=== PATIENT | male | born 1965 | race Caucasian/White ===

== ENCOUNTER 2017-10-10 23:39 | Emergency (ER) | payer OTHER ==
[~2017-10-10] VITALS: Ht 170.2 cm; Wt 116.1 kg
[~2017-10-10 23:39] MED LIST: ALBUTEROL2.5 MG/31 INH; CEFPODOXIME PR200 M1 PO; DUONEB 2.5-0.5 M3 ML INH; LEVAQUIN 500 M500 M4 PO; PERCOCET PO; PREDNISONE 10 M10 MG PO; PROTONIX40 M1 PO; VALIUM5 MG PO; VENTOLIN HFA 1818 GM INH
[2017-10-11 01:29] LABS: ABSOLUTE BASOPHILS 0.1 thou/uL (0.0-0.2); ABSOLUTE EOSINOPHILS 0.3 thou/uL (0.0-0.7); ABSOLUTE MONOCYTES 0.6 thou/uL (0.0-1.2); ABSOLUTE NEUTROPHILS 4.2 thou/uL (1.6-8.1); BASOPHILS 0.6 %; EOSINOPHILS 3.1 %; HEMATOCRIT 41.4 % (42.0-52.0); HEMOGLOBIN 14.3 gm/dL (14.0-18.0); LYMPHOCYTES 43.7 %; MCH 30.3 pg (26.0-34.0); MCHC 34.6 g/dL (28.0-37.0); MCV 87.6 fL (80.0-100.0); MONOCYTES 6.6 %; MPV 7.3 fl. (7.2-11.1); NUCLEATED RBCS 0 /100WBC; PLATELET COUNT* 353 thou/uL (150-400); RBC 4.72 mil/uL (4.50-6.00); RDW-CV 15.7 % (10.5-14.5); WBC 9.2 thou/uL (4.0-11.0)
[2017-10-11 01:34] LABS: ANION GAP 9 mmol/L (7-16); BUN 22 mg/dL (7-18); CALCIUM 9.2 mg/dL (8.5-10.1); CHLORIDE 102 mmol/L (98-107); CO2 29 mmol/L (21-32); CREATININE 1.1 mg/dL (0.6-1.3); GLUCOSE 134 mg/dL (70-99); POTASSIUM 3.9 mmol/L (3.5-5.1); SODIUM 140 mmol/L (136-145)
[2017-10-11 01:41] LABS: ALBUMIN 3.8 g/dL (3.4-5.0); ALKALINE PHOSPHATASE 85 U/L (46-116); LIPASE 101 U/L (73-393); SGOT 18 U/L (15-37); SGPT 37 U/L (30-65); TOTAL BILIRUBIN 0.2 mg/dL (<0.1-1.0); TOTAL PROTEIN 7.8 g/dL (6.4-8.2)
[2017-10-11 01:58] LABS: TROPONIN-I LEVEL <0.06 ng/mL (<0.06)
[2017-10-11 02:25] VITALS: BP 154/90
--- NOTE | 2017-10-11 13:12 | EKG ---
[place] [address] ELECTROCARDIOGRAM REPORT Name: SANDRA ANGULO [facility] [id number] Admission: 10/10/17 Attend Phys: Discharge: 10/11/17 Date of : 65 Report #: [id number] THIS REPORT FOR: //name// [facility] ED Test Date: 2017-10-10 Test Time: 23:50:31 Pat Name: SANDRA LICLDON Department: Room: Gender: M Cray Fishing Hand: GERARDO : 1965 Requested By: Giselle Preciado Order Number: [id number] MD: Richard Sevilla Measurements Intervals [place] Rate: 91 P: 20 [place]: 168 QRS: 21 QRSD: 83 T: 26 QT: 362 QTc: 446 Interpretive Statements Sinus rhythm Low voltage, precordial leads Consider RVH or posterior infarct Baseline wander in lead(s) I,II,aVR Compared to ECG 01/09/2017 04:33:28 Low QRS voltage now present Myocardial infarct finding now present Electronically Signed On 10-11-2017 13:12:27 FURNACE UTILITY OPERATOR by Richard Sevilla [email or web address] <ELECTRONICALLY SIGNED> By: Richard Sevilla MD, FAC 10/11/17 1312 2350 2350 Richard Sevilla MD, FAC /EPI
== END 2017-10-11 02:26 | disposition home or self-care (01) ==
LOC: M.ERS 23:39
PROVIDERS: Emergency Medicine
DX: R06.00 Dyspnea, unspecified (principal); F17.210 Nicotine dependence, cigarettes, uncomplicated; F10.99 Alcohol use, unspecified with unspecified alcohol-induced disorder; J45.909 Unspecified asthma, uncomplicated; Z88.5 Allergy status to narcotic agent; Z88.0 Allergy status to penicillin; Z88.8 Allergy status to other drugs, medicaments and biological substances; Z85.47 Personal history of malignant neoplasm of testis

== ENCOUNTER 2017-12-15 16:35 | Emergency (ER) | payer OTHER ==
[~2017-12-15] VITALS: Ht 170.2 cm; Wt 116.1 kg
[2017-12-15] MEDS ORDERED: KEFLEX500 M2 PO (17:10)
[2017-12-15 17:28] VITALS: BP 133/79
== END 2017-12-15 17:29 | disposition home or self-care (01) ==
LOC: M.ERS 16:35
DX: M79.671 Pain in right foot (principal); L03.031 Cellulitis of right toe; F17.210 Nicotine dependence, cigarettes, uncomplicated; J45.909 Unspecified asthma, uncomplicated; Z88.0 Allergy status to penicillin; Z88.5 Allergy status to narcotic agent; Z88.8 Allergy status to other drugs, medicaments and biological substances

== ENCOUNTER 2019-11-27 21:46 | Emergency (ER) | payer OTHER ==
[~2019-11-27] VITALS: Ht 172.7 cm; Wt 118.4 kg
[~2019-11-27 21:46] MED LIST changes: +KEFLEX500 M2 PO
[2019-11-27] MEDS ORDERED: ELIQUIS5 MG PO (22:06)
[2019-11-27] MEDS ORDERED: INDERAL40 MG PO (22:06)
[2019-11-27] MEDS ORDERED: [UNRECOGNIZED DRUG - OTHER] (22:07)
[2019-11-27] MEDS ORDERED: HUMATROPE (22:07)
[2019-11-27] MEDS ORDERED: ZOMIG2.5 M1 (22:08)
[2019-11-27] MEDS ORDERED: [UNRECOGNIZED DRUG - OTHER] (22:08)
[2019-11-27 22:35] LABS: PROTIME 10.7 Seconds (9.20-11.50)
[2019-11-27 23:01] LABS: ABSOLUTE BASOPHILS 0.1 thou/uL (0.0-0.2); ABSOLUTE EOSINOPHILS 0.2 thou/uL (0.0-0.7); ABSOLUTE LYMPHOCYTES 2.8 thou/uL (0.8-5.3); ABSOLUTE MONOCYTES 0.7 thou/uL (0.0-1.2); ABSOLUTE NEUTROPHILS 6.6 thou/uL (1.6-8.1); BASOPHILS 0.9 %; EOSINOPHILS 1.9 %; HEMATOCRIT 38.5 % (42.0-52.0); HEMOGLOBIN 12.9 gm/dL (14.0-18.0); LYMPHOCYTES 27.3 %; MCH 30.5 pg (26.0-34.0); MCHC 33.5 g/dL (28.0-37.0); MONOCYTES 6.8 %; MPV 7.5 fl. (7.2-11.1); NUCLEATED RBCS 0 /100WBC; PLATELET COUNT* 332 thou/uL (150-400); POLYS 63.1 %; RBC 4.24 mil/uL (4.50-6.00); RDW-CV 15.2 % (10.5-14.5); WBC 10.4 thou/uL (4.0-11.0)
[2019-11-27 23:15] LABS: CALCIUM 9.2 mg/dL (8.5-10.1); CREATININE 1.1 mg/dL (0.6-1.3); POTASSIUM 4.1 mmol/L (3.5-5.1)
[2019-11-27 23:25] LABS: ALBUMIN 3.4 g/dL (3.4-5.0); TOTAL BILIRUBIN 0.3 mg/dL (<0.1-1.0); TOTAL PROTEIN 7.3 g/dL (6.4-8.2)
[2019-11-28] MEDS ORDERED: HYDROXYZINE HCL25 M2 PO (01:42)
[2019-11-28] MEDS ORDERED: TRIAMCINOLONE A80 G2 TOP (01:42)
[2019-11-28 01:50] VITALS: BP 110/66
--- NOTE | 2019-11-28 08:50 | EKG ---
[place] [address] ELECTROCARDIOGRAM REPORT Name: SANDRA ANGULO Room: [facility]#: [id number] Admission: 11/27/19 Attend Phys: Discharge: 11/28/19 Date of : 65 Date of Service: 11/27/192157 Report #: [id number] THIS REPORT FOR: //name// [facility] ED Test Date: 2019-11-27 Test Time: 21:58:58 Pat Name: SANDRA ANGULO Department: Room: Gender: Turning Machine Operator: [place] : 1965 Requested By: Giselle Preciado Order Number: [id number] MD: Alli Hernandez Measurements Intervals [place] Rate: 71 P: 31 [place]: 178 QRS: 14 QRSD: 124 T: 30 QT: 407 QTc: 443 Interpretive Statements Sinus rhythm Nonspecific intraventricular conduction delay Baseline wander in lead(s) V3,V4,V5,V6 Compared to ECG 10/10/2017 23:50:31 Intraventricular conduction delay now present Electronically Signed On 11-28-2019 8:49:48 FIXER BOARDING ROOM by Alli Hernandez [email or web address] <ELECTRONICALLY SIGNED> By: Alli Hernandez MD, FAC 11/28/19 0849 2158 Alli Hernandez MD, [facility] /EPI
== END 2019-11-28 01:50 | disposition home or self-care (01) ==
LOC: M.ERS 21:46
PROVIDERS: Emergency Medicine
DX: I26.99 Other pulmonary embolism without acute cor pulmonale (principal); J45.909 Unspecified asthma, uncomplicated; G47.30 Sleep apnea, unspecified; F17.210 Nicotine dependence, cigarettes, uncomplicated; Z88.0 Allergy status to penicillin; Z88.5 Allergy status to narcotic agent

== ENCOUNTER 2020-03-02 11:46 | Emergency (ER) | payer OTHER ==
[~2020-03-02] VITALS: Ht 172.7 cm; Wt 127.0 kg
[~2020-03-02 11:46] MED LIST changes: +ELIQUIS5 MG PO; +HUMATROPE; +HYDROXYZINE HCL25 M2 PO; +INDERAL40 MG PO; +TRIAMCINOLONE A80 G2 TOP; +ZOMIG2.5 M1; +[UNRECOGNIZED DRUG - OTHER]; +[UNRECOGNIZED DRUG - OTHER]
[2020-03-02] MEDS ORDERED: ZYRTEC10 M5 PO (12:00)
[2020-03-02] MEDS ORDERED: OMEPRAZOLE10 MG PO (12:01)
[2020-03-02] MEDS ORDERED: CHOLESTEROL MED (12:01)
[2020-03-02 12:25] LABS: ABSOLUTE BASOPHILS 0.1 thou/uL (0.0-0.2); ABSOLUTE EOSINOPHILS 0.2 thou/uL (0.0-0.7); ABSOLUTE LYMPHOCYTES 2.2 thou/uL (0.8-5.3); ABSOLUTE MONOCYTES 0.6 thou/uL (0.0-1.2); ABSOLUTE NEUTROPHILS 4.2 thou/uL (1.6-8.1); BASOPHILS 1.4 %; HEMOGLOBIN 12.8 gm/dL (14.0-18.0); LYMPHOCYTES 30.5 %; MCH 30.4 pg (26.0-34.0); MCHC 34.7 g/dL (28.0-37.0); MCV 87.4 fL (80.0-100.0); MONOCYTES 7.5 %; NUCLEATED RBCS 0 /100WBC; PLATELET COUNT* 444 thou/uL (150-400); POLYS 57.6 %; RBC 4.23 mil/uL (4.50-6.00); RDW-CV 14.2 % (10.5-14.5); WBC 7.4 thou/uL (4.0-11.0)
[2020-03-02 12:35] LABS: APTT 30.4 Seconds (25.0-31.3); PROTIME 10.7 Seconds (9.20-11.50)
[2020-03-02 13:05] LABS: CREATININE 0.9 mg/dL (0.6-1.3); POTASSIUM 3.9 mmol/L (3.5-5.1)
[2020-03-02 13:16] LABS: ALBUMIN 3.2 g/dL (3.4-5.0); TOTAL BILIRUBIN 0.4 mg/dL (<0.1-1.0); TOTAL PROTEIN 7.8 g/dL (6.4-8.2)
[2020-03-02 14:28] LABS: URINE BILIRUBIN NEGATIVE (Negative); URINE BLOOD NEGATIVE (Negative); URINE CLARITY CLEAR; URINE COLOR YELLOW; URINE GLUCOSE-RANDOM NEGATIVE (Negative); URINE KETONES NEGATIVE (Negative); URINE LEUKOCYTES-REFLEX NEGATIVE (Negative); URINE NITRITE-REFLEX NEGATIVE (Negative); URINE PROTEIN NEGATIVE (Negative); URINE UROBILINOGEN 0.2 E.U./dl (0.2-1.0)
[2020-03-02 15:00] VITALS: BP 119/75
--- NOTE | 2020-03-02 16:26 | EKG ---
[place] [address] ELECTROCARDIOGRAM REPORT Name: SNADRA ANGULO Room: [facility]#: [id number] Admission: 03/02/20 Attend Phys: Discharge: 03/02/20 Date of : 65 Date of Service: 03/02/20 1150 Report #: [id number] THIS REPORT FOR: //name// [facility] ED Test Date: 2020-03-02 Test Time: 11:50:27 Pat Name: SANDRA ANGULO Department: Room: Gender: Clinical Data Coordinator: : 1965 Requested By: Angy Meier Order Number: [id number] MD: Jatin Brian Measurements Intervals [place] Rate: 81 P: 32 [place]: 168 QRS: 23 QRSD: 70 T: 20 QT: 474 QTc: 551 Interpretive Statements Sinus rhythm Low voltage, precordial leads Borderline T abnormalities, anterior leads Prolonged QT interval Baseline wander in lead(s) III,V4,V5 Compared to ECG 11/27/2019 21:58:58 Low QRS voltage now present T-wave abnormality now present Prolonged QT interval now present Intraventricular conduction delay no longer present Electronically Signed On 03-02-2020 16:24:08 CDT by Jatin Brian [email or web address] <ELECTRONICALLY SIGNED> By: Jatin Brian MD, [facility] 03/02/20 1624 1150 1150 Jatin Brian MD, [facility] /EPI
== END 2020-03-02 15:00 | disposition home or self-care (01) ==
LOC: M.ERS 11:46
PROVIDERS: Personal Emergency Response Attendant
DX: R03.1 Nonspecific low blood-pressure reading (principal); J45.909 Unspecified asthma, uncomplicated; G47.30 Sleep apnea, unspecified; Z88.0 Allergy status to penicillin; Z88.5 Allergy status to narcotic agent

== ENCOUNTER 2020-09-02 09:03 | Emergency (ER) | payer OTHER ==
[~2020-09-02] VITALS: Ht 172.7 cm; Wt 129.3 kg
[~2020-09-02 09:03] MED LIST changes: +CHOLESTEROL MED; +OMEPRAZOLE10 MG PO; +ZYRTEC10 M5 PO
[2020-09-02 09:23] LABS: ABSOLUTE BASOPHILS 0.1 thou/uL (0.0-0.2); ABSOLUTE EOSINOPHILS 0.3 thou/uL (0.0-0.7); ABSOLUTE LYMPHOCYTES 3.7 thou/uL (0.8-5.3); ABSOLUTE MONOCYTES 0.7 thou/uL (0.0-1.2); ABSOLUTE NEUTROPHILS 3.9 thou/uL (1.6-8.1); EOSINOPHILS 3.5 %; HEMATOCRIT 37.2 % (42.0-52.0); HEMOGLOBIN 12.5 gm/dL (14.0-18.0); MCHC 33.5 g/dL (28.0-37.0); MCV 86.7 fL (80.0-100.0); MONOCYTES 8.6 %; MPV 6.8 fl. (7.2-11.1); NUCLEATED RBCS 0 /100WBC; PLATELET COUNT* 344 thou/uL (150-400); POLYS 44.9 %; RDW-CV 14.8 % (10.5-14.5); WBC 8.7 thou/uL (4.0-11.0)
[2020-09-02 09:33] LABS: CALCIUM 8.2 mg/dL (8.5-10.1); CREATININE 0.9 mg/dL (0.6-1.3); POTASSIUM 3.8 mmol/L (3.5-5.1)
[2020-09-02 09:41] LABS: PROTIME 10.3 Seconds (9.20-11.50)
[2020-09-02 09:46] LABS: ALBUMIN 3.3 g/dL (3.4-5.0); CK-MB MASS 0.8 ng/mL (<0.5-3.6); MAGNESIUM 1.9 mg/dL (1.8-2.4); TOTAL BILIRUBIN 0.4 mg/dL (<0.1-1.0); TOTAL PROTEIN 7.5 g/dL (6.4-8.2)
[2020-09-02] MEDS ORDERED: PREDNISONE 20 M20 M1 PO (10:10)
[2020-09-02] MEDS ORDERED: ZOFRAN ODT4 MG SUBLING (10:10)
[2020-09-02] MEDS ORDERED: TESSALON PERLE100 MG PO (10:10)
[2020-09-02] MEDS ORDERED: ZPAK PO (10:10)
[2020-09-02 10:28] VITALS: BP 136/59
--- NOTE | 2020-09-03 08:58 | EKG ---
[place] [address] ELECTROCARDIOGRAM REPORT Name: SANDRA ANGULO Room: [facility]#: [id number] Admission: 09/02/20 Attend Phys: Discharge: 09/02/20 Date of : 65 Date of Service: 09/02/20 0910 Report #: [id number] THIS REPORT FOR: //name// [facility] ED Test Date: 2020-09-02 Test Time: 09:10:07 Pat Name: SANDRA ANGULO Department: Room: Gender: Casting Operator: : 1965 Requested By: Shlomo Granda Order Number: [id number] MD: Alli Hernandez Measurements Intervals [place] Rate: 96 P: 45 [place]: 179 QRS: 22 QRSD: 95 T: 72 QT: 351 QTc: 444 Interpretive Statements Sinus rhythm Low voltage, precordial leads Borderline T wave abnormalities Compared to ECG 03/02/2020 11:50:27 Prolonged QT interval no longer present T-wave abnormality still present Electronically Signed On 09-03-2020 8:58:05 FIRE PROTECTION DESIGNER by Alli Hernandez [email or web address] <ELECTRONICALLY SIGNED> By: Alli Hernandez MD, FACC 09/03/20 0858 Alli Hernandez MD, [facility] /EPI
== END 2020-09-02 10:28 | disposition home or self-care (01) ==
LOC: M.ERS 09:03
PROVIDERS: Family Medicine
DX: U07.1 COVID-19 (principal); J45.909 Unspecified asthma, uncomplicated; G47.30 Sleep apnea, unspecified; F17.210 Nicotine dependence, cigarettes, uncomplicated; Z88.0 Allergy status to penicillin; Z88.5 Allergy status to narcotic agent

== ENCOUNTER 2020-09-04 19:24 | Inpatient (IN) | payer OTHER ==
[~2020-09-04] VITALS: Ht 170.2 cm; Wt 123.0 kg
[~2020-09-04 19:24] MED LIST changes: +PREDNISONE 20 M20 M1 PO; +TESSALON PERLE100 MG PO; +ZOFRAN ODT4 MG SUBLING; +ZPAK PO
[2020-09-04 19:32] VITALS: BP 126/76
[2020-09-04 20:05] LABS: ABSOLUTE LYMPHOCYTES 0.8 thou/uL (0.8-5.3); ABSOLUTE MONOCYTES 0.6 thou/uL (0.0-1.2); ABSOLUTE NEUTROPHILS 7.3 thou/uL (1.6-8.1); BASOPHILS 0.5 %; EOSINOPHILS 0.4 %; HEMATOCRIT 34.3 % (42.0-52.0); HEMOGLOBIN 11.4 gm/dL (14.0-18.0); LYMPHOCYTES 9.4 %; MCH 29.8 pg (26.0-34.0); MCHC 33.4 g/dL (28.0-37.0); MCV 89.2 fL (80.0-100.0); MONOCYTES 6.9 %; MPV 7.2 fl. (7.2-11.1); NUCLEATED RBCS 0 /100WBC; PLATELET COUNT* 303 thou/uL (150-400); POLYS 82.8 %; RBC 3.85 mil/uL (4.50-6.00); RDW-CV 15.5 % (10.5-14.5); WBC 8.8 thou/uL (4.0-11.0)
[2020-09-04 20:17] LABS: CALCIUM 8.1 mg/dL (8.5-10.1); CREATININE 1.1 mg/dL (0.6-1.3); POTASSIUM 4.4 mmol/L (3.5-5.1)
[2020-09-04 20:18] LABS: PROTIME 10.4 Seconds (9.20-11.50)
[2020-09-04 20:28] LABS: ALBUMIN 3.1 g/dL (3.4-5.0); TOTAL BILIRUBIN 0.1 mg/dL (<0.1-1.0); TOTAL PROTEIN 7.2 g/dL (6.4-8.2)
[2020-09-04 20:41] LABS: INFLUENZA A ANTIGEN Negative (Negative); INFLUENZA B ANTIGEN Negative (Negative)
[2020-09-04 22:42] VITALS: BP 120/60
[2020-09-04 23:15] VITALS: BP 111/71
[2020-09-04] MEDS ORDERED: LIPITOR40 MG PO (23:27)
[2020-09-04] MEDS ORDERED: ZYRTEC10 MG PO (23:29)
[2020-09-05 04:20] VITALS: BP 104/65
--- NOTE | 2020-09-05 05:22 | NUR ---
RECIEVED PT FROM ED , UPON ARRIVAL TO ROOM PT AMBULATED TO BATHROOM, TOLERATED WELL SAT 94 % , PT REQUEST 02 EXT TUBING , LUNG SOUND DECREASED IN BASES, NO COUGH NOTED NO FVER . CARDIAC MONTIOR PLACED ON PT SHOWS NSR.PT RESTED WELL THROUGHOUT HOURLY ROUNDS, WITH HOME CPAP ON IN PLACE.
--- NOTE | 2020-09-05 06:16 | NUR ---
PT SLEPT WELL NO CHANGES NOTED , ASSESSMENT UNCHANGED.
--- NOTE | 2020-09-05 09:18 | EKG ---
[place] [address] ELECTROCARDIOGRAM REPORT Name: SANDRA ANGULO Room: [address]#: [id number] Admission: 09/04/20 Attend Phys: Angela Vázquez, Discharge: Date of : 65 Date of Service: 09/04/201936 Report #: [id number] THIS REPORT FOR: //name// [facility] ED Test Date: 2020-09-04 Test Time: 19:37:50 Pat Name: SANDRA ANGULO Department: Room: [facility] Gender: M Sexer: [place] : 1965 Requested By: Giselle Preciado Order Number: [id number] MD: Alli Hernandez Measurements Intervals [place] Rate: 109 P: 19 [place]: 156 QRS: 19 QRSD: 86 T: 2 QT: 313 QTc: 422 Interpretive Statements Sinus tachycardia Probable left atrial enlargement Baseline wander in lead(s) I,II,aVR Compared to ECG 09/02/2020 09:10:07 Sinus rhythm no longer present T-wave abnormality no longer present Electronically Signed On 09-05-2020 9:18:24 IRON WORKER FOREMAN by Alli Hernandez [email or web address] <ELECTRONICALLY SIGNED> By: Alli Hernandez MD, FACC 09/05/2018 36 36 Alli Hernandez MD, FACC /EPI
[2020-09-05 09:40] VITALS: BP 111/76
[2020-09-05 12:49] VITALS: BP 125/67
[2020-09-05 14:00] VITALS: BP 103/71
[2020-09-05 16:09] VITALS: BP 103/67; BP 119/68; BP 120/63; BP 125/72
--- NOTE | 2020-09-05 18:55 | NUR ---
RECEIVED REPORT. ASSUMED CARE OF PT AROUND 0730. AM ASSESSMENT AND VITALS COMPLETED CHARTED. MEDS PER EMAR. APPETITE GOOD. DENIED PAIN. TEMP THIS AFTERNOON OF 102.6 - TYLENOL GIVEN, AND TEMP DOWN TO 98.5. CONVALESANT PLASMA INFUSING NOW, NIGHT RN TO FINISH INFUSION. PT CURRENTLY RESTING IN BED. CALL LIGHT IS WITHIN REACH REACH. HOURLY ROUNDING PERFORMED. LOW FALL RISK PRECAUTIONS IN PLACE,.
[2020-09-05 20:01] VITALS: BP 125/72
[2020-09-06] VITALS (7 sets, daily range): BP systolic 111–136; BP diastolic 59–84
[2020-09-06 05:08] LABS: ABSOLUTE MONOCYTES 0.5 thou/uL (0.0-1.2); ABSOLUTE NEUTROPHILS 7.5 thou/uL (1.6-8.1); BASOPHILS 0.2 %; HEMATOCRIT 34.3 % (42.0-52.0); HEMOGLOBIN 11.6 gm/dL (14.0-18.0); LYMPHOCYTES 10.7 %; MCH 29.2 pg (26.0-34.0); MCHC 33.9 g/dL (28.0-37.0); MCV 86.1 fL (80.0-100.0); MONOCYTES 5.7 %; MPV 7.2 fl. (7.2-11.1); NUCLEATED RBCS 0 /100WBC; PLATELET COUNT* 287 thou/uL (150-400); POLYS 83.4 %; RBC 3.98 mil/uL (4.50-6.00); RDW-CV 15.3 % (10.5-14.5)
[2020-09-06 05:15] LABS: CALCIUM 8.1 mg/dL (8.5-10.1); CREATININE 0.9 mg/dL (0.6-1.3); POTASSIUM 4.3 mmol/L (3.5-5.1)
--- NOTE | 2020-09-06 05:59 | NUR ---
PT IS ABLE TO COMMUNICATE HIS NEEDS TO STAFF EFFECTIVELY. HE HAS DENIED THE NEED FOR PAIN MEDICATION UP TO THIS TIME. PT HAS RUN A LOW-GRADE FEVER INTERMITTENTLY OVERNIGHT. HE HAS BEEN WEARING HIS HOME CPAP FOR THE MAJORITY OF THE NIGHT WHILE SLEEPING.
--- NOTE | 2020-09-06 09:10 | NUR ---
Nutrition: Pt morbidly obese. Admit yesterday COVID+ w/ shortnesss of breath. Nsg noted pt with good appetite. Albumin 3.1. Steriods and other meds reviwed. Physician noted that pt continues with high grade fever this am. Pt is receiving a heart healthy diet. No new recommendations at this time. Assessed at low nutrition risk.
--- NOTE | 2020-09-06 18:24 | NUR ---
PT REMAINED ALERT AND ORIENTED. PT RESTING IN BED. PLASMA GIVEN PER ORDERS. FALL RISK PRECAUTIONS IN PLACE. HEART MONITORED. HOURLY ROUNDING COMPLETED. WILL CONTINUE TO MONITOR.
[2020-09-07 00:28] VITALS: BP 114/70
[2020-09-07 05:09] VITALS: BP 112/65
[2020-09-07 05:17] LABS: HEMATOCRIT 36.8 % (42.0-52.0); HEMOGLOBIN 12.2 gm/dL (14.0-18.0); MCH 28.8 pg (26.0-34.0); MCV 87.1 fL (80.0-100.0); MPV 7.4 fl. (7.2-11.1); NUCLEATED RBCS 0 /100WBC; PLATELET COUNT* 281 thou/uL (150-400); RBC 4.23 mil/uL (4.50-6.00); RDW-CV 15.2 % (10.5-14.5); WBC 9.4 thou/uL (4.0-11.0)
[2020-09-07 05:45] LABS: ALBUMIN 2.7 g/dL (3.4-5.0); CALCIUM 8.2 mg/dL (8.5-10.1); CREATININE 0.9 mg/dL (0.6-1.3); POTASSIUM 4.4 mmol/L (3.5-5.1); TOTAL BILIRUBIN 0.3 mg/dL (<0.1-1.0); TOTAL PROTEIN 7.6 g/dL (6.4-8.2)
[2020-09-07 07:00] LABS: ABSOLUTE LYMPHOCYTES 1.5 thou/uL (0.8-5.3); ABSOLUTE MONOCYTES 0.2 thou/uL (0.0-1.2); ABSOLUTE NEUTROPHILS 7.7 thou/uL (1.6-8.1); PLATELET ESTIMATE ADEQUATE
[2020-09-07 08:05] VITALS: BP 119/70
--- NOTE | 2020-09-07 08:47 | NUR ---
PT IS ABLE TO COMMUNICATE HIS NEEDS TO STAFF EFFECTIVELY. HE HAS DENIED THE NEED FOR PAIN MEDICATION UP TO 0700 THIS MORNING.
--- NOTE | 2020-09-07 11:15 | NUR ---
SPOKE WITH PT.ON PHONE DUE TO COVID 19 AND IN ENHANCED PRECAUTIONS. HE LIVES WITH HIS . IS INDEPENDENT. NO USE OF DME OR O2 . HE REQUESTED A NEW DPOA FORM WHEN OUT OF ISOLATION. HE WOULD LIKE TO CHANGE HIS AGENT. FORM PLACED IN FRONT OF CHART FOR PT.WHEN HE IS OUT OF ISOLATION. CM WILL FOLLOW.
[2020-09-07 11:46] VITALS: BP 113/62
--- NOTE | 2020-09-07 14:41 | CON ---
[address] [address] CONSULTATION Name: SANDRA ANGULO Room: [address] IN ..#: [id number] Admission: 09/05/20 Attend Phys: Angela Vázquez MD Discharge: Date of : 65 Report #: [id number] THIS REPORT FOR: //name// cc: SWATHI Davila family physician/PCP SWATHI - Lola family physician/PCP ~ DATE OF SERVICE: 09/06/2020 CONSULT REQUESTED BY: Isaias Cuadra M.D. INDICATION FOR CONSULTATION: Acute hypoxemic respiratory failure secondary to COVID-19. HISTORY OF PRESENT ILLNESS: A 55-year-old gentleman with past medical history includes a history of bronchial asthma as well as obstructive sleep apnea. He also had a deep venous thrombosis and pulmonary emboli for which he took anticoagulation for about 9 months until the June. The circumstances in which he had deep venous thrombosis and pulmonary embolism are not fully known to me at this time. The patient came to the Emergency Room on 09/02. At that time, he tested positive for COVID-19, was discharged home. The patient, however, continued to deteriorate and came back to the Emergency Room again on 09/04. He has been having a high-grade fever with violent chills. Temperatures up to 102 degrees Fahrenheit. Also has been having shortness of breath and cough. The patient also dropped his O2 saturations. He has not previously been on supplemental oxygen. He currently is requiring oxygen at 3.5 liters to maintain O2 saturation in the low 90s, last charted at 92%. The patient's chest x-ray also shows progressive worsening in the infiltrate, particularly at the left lung base. REVIEW OF SYSTEMS: For 10 points is negative except as mentioned above. PAST MEDICAL HISTORY: Bronchial asthma, obstructive sleep apnea, on CPAP at home. Recent deep venous thrombosis and pulmonary emboli as above, inguinal hernia, nose, jaw and testicular surgery. SOCIAL HISTORY: There is an extensive history of smoking more than a pack a day for more than 40 years. He is reported to have now discontinued. No known history of heavy alcohol use or illegal drug use. CURRENT MEDICATIONS: List in [employer] reviewed. HOME MEDICATIONS: List [place] [employer] [place] [address] CONSULTATION Name: SANDRA ANGULO Kyler Room: [address]#: [id number] Admission: 09/05/20 Attend Phys: Angela Vázquez MD Discharge: Date of : 65 Report #: [id number] FAMILY HISTORY: No pertinent family history. PHYSICAL EXAMINATION: GENERAL: He is alert, awake and oriented. VITAL SIGNS: In the records reviewed. Currently, requiring 3.5 liters oxygen via nasal cannula to maintain O2 saturation 92. NECK: Does not show raised JVP. CHEST: Breath sounds bilaterally equal, decreased. No added sounds. HEART: Regular, no murmur. ABDOMEN: Soft and nontender. EXTREMITIES: Lower extremities 1+ edema, no calf tenderness. Chest x-rays and lab work in [facility] reviewed. Also, see discussion above. ASSESSMENT AND PLAN: 1. Acute hypoxemic respiratory failure secondary to COVID-19. The patient has worsened and he is now requiring oxygen at 3.5 liters to maintain O2 saturation in the low 90s. Chest x-rays also show progressive worsening. Therefore, I recommend that we proceed with treating him with remdesivir and the same is ordered. Meanwhile, we will continue with oxygen and titrate as well. I agree with dexamethasone as currently prescribed as well. 2. Obstructive sleep apnea, remains on his own CPAP from home while asleep. 3. Pulmonary infiltrates. The infiltrates, particularly at the left lung base appears to be increasing in size, which is the reason I started Levaquin. The patient already is on doxycycline. We will do a sputum culture and nasal swab for methicillin-resistant staphylococcus aureus. In case the nasal swab for methicillin-resistant staphylococcus aureus is negative and he improves, then we will later on consider discontinuing doxycycline. 4. Fluid overload. He did get Lasix this morning. We will reassess tomorrow for more Lasix. 5. Bronchial asthma/possible chronic obstructive pulmonary disease. Switched him over to Brovana. He is on dexamethasone as above. 6. Recent deep venous thrombosis/pulmonary emboli. Note that his venous Dopplers now are negative. He was off anticoagulation in June at home. D-dimer was not elevated at 0.34. 7. Deep venous thrombosis prophylaxis, Lovenox. 8. Clostridium difficile prophylaxis, Florastor. Thanks for this consultation. <ELECTRONICALLY SIGNED> By: Sandro Evangelista MD 09/07/20 1441 1803 1935Alo Evangelista MD /nt
[2020-09-07 15:33] VITALS: BP 116/71
--- NOTE | 2020-09-07 19:22 | NUR ---
PT A&OX4 VSS. PT HAS SOME ANXIETY R/T TO DX. PRN XANAX ADMINISTERED REQUESTED. PT UP AD PILLO, GAIT STEADY. PT OXYGEN NEEDS INCREASED THIS EVENING. RT INCREASED O2 TO 10L BY NC. HOME CPAP AT BEDSIDE, 5L O2 BLED IN. IV TO RFA PATENT, DRESSING C/D/I. PT RESTS AT BEDSIDE WITH CALL LIGHT AND PHONE IN REACH. WILL CONTINUE TO MONITOR
[2020-09-07 20:00] VITALS: BP 132/72
[2020-09-08] VITALS: BP 113/67
[2020-09-08 04:00] VITALS: BP 117/80
--- NOTE | 2020-09-08 06:09 | NUR ---
ASSUMED PT'S CARE ABOUT 1930. PT ALERT AND ORIENTED. ANXIOUS. VSS ON 5L NC. CPAP AT HS. PT WORRIED THAT HE MIGHT TAKE HIS CPAP OFF LIKE HE DOES IN HIS SLEEP AND POSSIBLY . PT ENSURED THAT ROUNDINGS WILL BE DONE TO ENSURE THAT CPAP WAS IN PLACE. XANAX PRN GIVEN PER PT'S REQUEST. PT SLEPT WELL. CALL LIGHT WITHIN REACH. WILL CONTINUE TO MONITOR.
[2020-09-08 06:42] LABS: ABSOLUTE LYMPHOCYTES 0.8 thou/uL (0.8-5.3); ABSOLUTE MONOCYTES 0.5 thou/uL (0.0-1.2); ABSOLUTE NEUTROPHILS 6.2 thou/uL (1.6-8.1); BASOPHILS 0.3 %; HEMATOCRIT 36.1 % (42.0-52.0); LYMPHOCYTES 10.9 %; MCHC 33.2 g/dL (28.0-37.0); MCV 87.1 fL (80.0-100.0); MONOCYTES 6.3 %; MPV 7.8 fl. (7.2-11.1); NUCLEATED RBCS 0 /100WBC; PLATELET COUNT* 290 thou/uL (150-400); POLYS 82.5 %; RBC 4.15 mil/uL (4.50-6.00); RDW-CV 15.1 % (10.5-14.5); WBC 7.5 thou/uL (4.0-11.0)
[2020-09-08 07:06] LABS: CALCIUM 8.2 mg/dL (8.5-10.1); CREATININE 0.8 mg/dL (0.6-1.3); MAGNESIUM 2.3 mg/dL (1.8-2.4); POTASSIUM 4.4 mmol/L (3.5-5.1)
[2020-09-08 08:05] VITALS: BP 132/81
[2020-09-08 11:29] VITALS: BP 119/77
--- NOTE | 2020-09-08 17:57 | NUR ---
PT A&OX4 VSS. PT PLACED ON BIPAP BY RT. SATS 95%-97% PT FAMILY UPDATED BY PHONE. PT HAS ANXIETY R/T DX. PT UP AD PILLO TO BSC. PT ASSISTED TO BATHE, LINENS CHANGED THIS AFTERNOON. PT REMAINS SINUS ON MONITOR. IV TO RFA PATENT, DRESSING C/D/I. SKIN REMAINS INTACT. PRN XANAX ADMINISTERED REQUESTED. PT ABLE TO REPOSITION IN BED INDEPENDENTLY, MIN ASSIST AT TIMES. PT RESTS IN BED WITH CALL LIGHT AND PHONE IN REACH, WILL CONTINUE TO MONITOR.
[2020-09-08 18:40] VITALS: BP 111/64
[2020-09-08 20:20] VITALS: BP 101/51
[2020-09-09 00:24] VITALS: BP 106/65
[2020-09-09 05:31] VITALS: BP 118/69
--- NOTE | 2020-09-09 07:04 | NUR ---
PT SLEPT FAIRLY WELL OVERNIGHT. XANAX ORDERS INCREASED FREQUENCY FOR PT COMFORT AND ABILITY TO TOLERATE BIPAP OVERNIGHT. ANXIOUS AND TEARFUL AT TIMES. RFA SL. HEATED HI FLOW O2 WHEN NOT ON BIPAP. RT TX GIVEN SCHEDULED AND PRN. AM LABS. PT ASSISTED TO REPOSITION IN BED HE WOULD ALLOW OVERNIGHT, EDUCATION GIVEN ABOUT SKIN CARE. ABLE TO USE CALL LITE AND MAKE NEEDS KNOWN. TELE SR. PT REQUESTING DPOA CHANGE, NSG SUP AWARE AND COPY OPERATOR ELEVATOR REPAIRER HELPER WHEN NEEDED HE REPORTS. CALL LITE IN EASY REACH.
[2020-09-09 07:35] VITALS: BP 115/67
[2020-09-09 10:09] LABS: ABSOLUTE LYMPHOCYTES 0.8 thou/uL (0.8-5.3); ABSOLUTE MONOCYTES 0.8 thou/uL (0.0-1.2); ABSOLUTE NEUTROPHILS 7.1 thou/uL (1.6-8.1); BASOPHILS 0.1 %; HEMATOCRIT 37.8 % (42.0-52.0); HEMOGLOBIN 12.8 gm/dL (14.0-18.0); LYMPHOCYTES 8.7 %; MCH 29.1 pg (26.0-34.0); MCHC 33.8 g/dL (28.0-37.0); MCV 86.2 fL (80.0-100.0); MONOCYTES 8.8 %; MPV 7.2 fl. (7.2-11.1); NUCLEATED RBCS 0 /100WBC; PLATELET COUNT* 336 thou/uL (150-400); POLYS 82.4 %; RBC 4.39 mil/uL (4.50-6.00); RDW-CV 14.6 % (10.5-14.5); WBC 8.7 thou/uL (4.0-11.0)
[2020-09-09 10:25] LABS: ALBUMIN 2.6 g/dL (3.4-5.0); CALCIUM 8.3 mg/dL (8.5-10.1); CREATININE 0.9 mg/dL (0.6-1.3); POTASSIUM 4.4 mmol/L (3.5-5.1); TOTAL BILIRUBIN 0.4 mg/dL (<0.1-1.0); TOTAL PROTEIN 7.6 g/dL (6.4-8.2)
[2020-09-09 12:00] VITALS: BP 118/70
[2020-09-09 16:00] VITALS: BP 121/75
--- NOTE | 2020-09-09 19:37 | NUR ---
PT A&OX4 VSS. PT HAS SOME LABORED BREATHING, PT ON BIPAP. PT ON HEATED HIGH-FLOW INTERMITTENTLY TOLERATED FOR MEALS. ANXIETY R/T DX, PRN XANAX ADMINISTERED REQUESTED. MIN ASSIST TO BSC. IV TO LFA PATENT, DRESSING C/D/I. UPDATED BY PHONE THIS SHIFT. PT RESTING IN BED WITH CALL IGHT AND PHONE IN REACH, WILL CONTINUE TO MONITOR.
[2020-09-09 20:30] VITALS: BP 115/66
[2020-09-10] VITALS (52 sets, daily range): BP systolic 65–155; BP diastolic 40–88
--- NOTE | 2020-09-10 00:19 | NUR ---
PT CO HEARTBURN AND ABD PAIN CAUSED BY CONSTIPATION EARLIER IN SHIFT. DR NOTIFIED AND ORDERS RECEIED FOR PRN MEDICATIONS-GIVEN. PT VERY ANXIOUS AND TEARFUL, REASSURANCE GIVEN AND PT ABLE TO DOZE FOR A BRIEF PERIOD OF TIME. PT PANICKED, USING CALL LITE YELLING "HELP ME HELP ME'. UPON ARRIVAL TO ROOM PT SATS ON BIPAP 95% BUT PT ANXIOUS, NAUSEATED AND FEELING LIKE HE WASGOING TO VOMIT. AFTER A FEW DRY HEAVES PT HAD SMALL EMESIS GREEN LIQUID, MASK HELD LOOSELY IN PLACE WHILE PT CONTINUES TO FEEL LIKE HE NEEDED TO VOMIT. RT CALLED FOR ASSISTANCE TO PUT PT ON HEATD HI FLOW NC AT THIS TIME DUE TO CONTINUE NAUSEA. CALL PLACED TO DR FOR ADDITIONAL NAUSEA MED AND MORPHINE FOR AIR HUNGER SUGGESTED BY RT. MEDS GIVEN ORDERED AND PT SLEEPING QUIETLY AT THIS TIME, HOB IN UPRIGHT POSITION AND HI FLOW NASL CANNULA REMAINS ON PT WITH SATS RANGING 85-87%. RT HERE AND WILL CHECK BACK AND TRY TO PUT PT BACK ON BIPAP AFTER NAUSEA COMPLETELY SUBSIDES AND PT CALM. FREQUENT OBSERVATION GIVEN BY THIS NURSE-STAYING IN FULL PPE BEHIND PLASTIC ISOLATION CURTAINS TO MONITOR PT.
--- NOTE | 2020-09-10 05:18 | NUR ---
PT SLEPT FOR ABOUT AND HOUR AND HALF AND THEN AWAKENED WITH DRY HEAVES, SCANT AMOUNT OF BROWN LIQUID EMESIS. DR NOTIFIED AND ORDERS RECEIVED FOR NAUSEA MED AND IV MORPHINE PRN, PHENERGAN INFUSING RFA AT PRESENT. RT HERE FREQUENTLY OVERNIGHT MONITORING PT O2 SATS AND CONDITION. ON HEATED HI FLOW O2 55L SATS 85-90%. PT ANXIOUS AND DEPRESSED, "IM NOT EVER GOING TO GET BETTER", "I JUST WANT TO BE SEDATED", "I CANT DO THIS". ENCOURAGEMENT GIVEN, FREQUENT OBSERVATION. CALL LITE IN EASY REACH, PT USES CALL LITE AND ALSO YELLS OUT AT TIMES.
[2020-09-10 07:55] LABS: BE 8.8 mmol/L (-2 to +3)
[2020-09-10 07:57] LABS: PCO2 51.1 mmHg (35.0-45.0); PO2 50.2 mmHg (75.0-100.0)
--- NOTE | 2020-09-10 09:00 | NUR ---
PT AWAKE/ALERT THIS AM AT 0730 PT HAS INCREASED WORK OF BREATHING AND INCREASED OXYGEN NEEDS. PT ABLE TO RESPOND AND ANSWER QUESTIONS APPROPRIATELY. RT WITH PT TO EVAL WELL. ABG ORDERED AND COLLECTED, CRITICAL RESULTS REPORTED TO RT AND DR CHANDRA. DR HERNANDEZ CONTACTED BY AMY YOUSSEF. HOUSE SUPERVISER MADE AWARE OF SITUATION. PT TO BE INTUBATED "IMMEDIATELY" AND MOVED TO ICU. PT NOTIFIED AND UPDATED BY PHONE. THIS NURSE ASSISTED PT TO CALL TO SPEAK PRIOR TO INTUBATION. DR RUSSELL AND JR NDIAYE FROM ER AT BEDSIDE TO INTUBATE. CRASH CART WITH SUCTION AND CARDIAC MONITORING AT BEDSIDE. PT ON HEART MONITOR. RSI MEDS ARRIVED WITH ER NURSE AND ADMINISTERED BY JR NDIAYE PER DR RUSSELL ORDERS. PT INTUBATED WHILE UNDER ISOLATION PRECAUTIONS. PT STABILIZED AND TRANSPORTED TO ICU PER DR RUSSELL. FLIGHT CONTROL MANAGER, THIS NURSE AND RT TRANPORTED PT ON MONITORING AND VENT. PHARMACY NOTIFIED OF USE OF CRASH CART. BELONGINGS TO BE MOVED TO PT ICU ROOM.
--- NOTE | 2020-09-10 09:38 | NUR ---
THIS RT CAME TO PATIENT'S ROOM TO ASSESS HIM AND GIVE HIM HIS MORNING BREATHING TREATMENT. FOUND PATIENT BREATHING IN THE 30'S AND APPEARED VERY LABORED. HE WAS COMPLAINING OF NAUSEA, VOMITING, AND PAIN IN HIS ABDOMEN. HE WAS ON HEATED HIGH FLOW OXYGEN AT 50L, 100% AND A NRB MASK ON TOP OF THAT WITH AN OXYGEN SATURATION OF 84%. NO PREVIOUS ABG HAD BEEN DONE. WITH PATIENT'S PHYSICAL APPEARANCE AND OXYGEN NEEDS, I GOT AN ABG, RESULTS WERE PH 7.45, PCO2 51.1, PAO2 50.2, HCO3 34.7, BE 8.8, O2 SAT 87%. CALLED RESULTS TO DR. HERNANDEZ AND HE VERBALLY ORDERED IMMEDIATE INTUBATION AND TRANSFER TO ICU. HOUSE SUP NOTIFIED, ER DOCTOR INTUBATED. PT TRANSFERRED TO THE ICU ON VENTILATOR.
[2020-09-10 10:46] LABS: BE 5.6 mmol/L (-2 to +3); pH 7.372 (7.340-7.450)
[2020-09-10 10:48] LABS: PO2 54.6 mmHg (75.0-100.0)
--- NOTE | 2020-09-10 11:00 | NUR ---
PT RECEIVED AT 0915 POST INTUBATION AT [facility], VERSED AND [place] GTT STARTED, PT SATTING HIGH 80s, SEDATION MAXED. DR HERNANDEZ AWARE. OG AND NAVARRO'S CATH INSERTED.
--- NOTE | 2020-09-10 11:47 | NUR ---
RIGHT CEPHALIC VESSEL ACCESSED FOR TRIPLE LUMEN PICC. LINE PRE-TRIMMED TO 41 CM AND ADVANCED TO THE ZERO SARAH WITH NO RESISTANCE MET. UPPER ARM CIRCUMFERENCE ABOVE INSERTION SITE= 18". SHERLOCK MAGNET AND 3CG CONFIRMATION OF TIP TERMINATION AT THE 2CM OUT SARAH NOTED. GUIDEWIRE REMOVED, LINE FLUSHED AND INSERTION SITE DRESSED. REPORT GIVEN TO ANGELY NDIAYE.
[2020-09-10 11:56] LABS: HEMATOCRIT 35.4 % (42.0-52.0); HEMOGLOBIN 11.8 gm/dL (14.0-18.0); MCH 28.6 pg (26.0-34.0); MCHC 33.3 g/dL (28.0-37.0); MPV 7.1 fl. (7.2-11.1); NUCLEATED RBCS 0 /100WBC; PLATELET COUNT* 336 thou/uL (150-400); RBC 4.12 mil/uL (4.50-6.00); RDW-CV 14.2 % (10.5-14.5); WBC 8.6 thou/uL (4.0-11.0)
[2020-09-10 12:04] LABS: CALCIUM 7.5 mg/dL (8.5-10.1); CREATININE 0.9 mg/dL (0.6-1.3); POTASSIUM 4.4 mmol/L (3.5-5.1)
[2020-09-10 12:08] LABS: ALBUMIN 2.3 g/dL (3.4-5.0); MAGNESIUM 2.6 mg/dL (1.8-2.4); TOTAL BILIRUBIN 0.4 mg/dL (<0.1-1.0); TOTAL PROTEIN 6.6 g/dL (6.4-8.2)
[2020-09-10 12:56] LABS: BE 10.2 mmol/L (-2 to +3); pH 7.458 (7.340-7.450)
[2020-09-10 12:57] LABS: ABSOLUTE LYMPHOCYTES 0.6 thou/uL (0.8-5.3); ABSOLUTE MONOCYTES 0.2 thou/uL (0.0-1.2); ABSOLUTE NEUTROPHILS 7.8 thou/uL (1.6-8.1); METAMYELOCYTES 1 %; PLATELET ESTIMATE ADEQUATE
[2020-09-10 12:58] LABS: PCO2 51.9 mmHg (35.0-45.0); PO2 57.5 mmHg (75.0-100.0)
[2020-09-10 15:07] LABS: URINE BILIRUBIN NEGATIVE (Negative); URINE BLOOD 1+ (Negative); URINE CLARITY CLEAR; URINE COLOR YELLOW; URINE GLUCOSE-RANDOM NEGATIVE (Negative); URINE KETONES NEGATIVE (Negative); URINE LEUKOCYTES-REFLEX NEGATIVE (Negative); URINE NITRITE-REFLEX NEGATIVE (Negative); URINE PROTEIN NEGATIVE (Negative); URINE SPECIFIC GRAVITY >= 1.030 (1.005-1.030); URINE UROBILINOGEN 0.2 E.U./dl (0.2-1.0)
[2020-09-10 15:42] LABS: SQUAMOUS 0-3 Few /LPF (0-3)
[2020-09-10 15:43] LABS: BACTERIA-REFLEX None Seen /HPF (None Seen); CASTS None Seen /LPF (None Seen); CRYSTALS None Seen /LPF (None Seen); URINE RBC 3-10 Few /HPF (0-2); URINE WBC-REFLEX 0-5 Rare /HPF (0-5)
[2020-09-10 17:06] LABS: BE 5.6 mmol/L (-2 to +3); PCO2 47.5 mmHg (35.0-45.0)
[2020-09-10 19:57] LABS: CALCIUM 7.7 mg/dL (8.5-10.1); CREATININE 0.8 mg/dL (0.6-1.3); MAGNESIUM 2.7 mg/dL (1.8-2.4); POTASSIUM 3.6 mmol/L (3.5-5.1)
[2020-09-11] VITALS (50 sets, daily range): BP systolic 91–157; BP diastolic 51–110
[2020-09-11 03:23] LABS: ABSOLUTE LYMPHOCYTES 0.8 thou/uL (0.8-5.3); ABSOLUTE MONOCYTES 0.5 thou/uL (0.0-1.2); ABSOLUTE NEUTROPHILS 7.3 thou/uL (1.6-8.1); BASOPHILS 0.1 %; EOSINOPHILS 0.1 %; HEMATOCRIT 34.9 % (42.0-52.0); HEMOGLOBIN 11.5 gm/dL (14.0-18.0); LYMPHOCYTES 9.1 %; MCH 28.4 pg (26.0-34.0); MCHC 32.9 g/dL (28.0-37.0); MCV 86.3 fL (80.0-100.0); MONOCYTES 6.3 %; MPV 7.3 fl. (7.2-11.1); NUCLEATED RBCS 0 /100WBC; PLATELET COUNT* 331 thou/uL (150-400); POLYS 84.4 %; RBC 4.04 mil/uL (4.50-6.00); RDW-CV 14.1 % (10.5-14.5); WBC 8.7 thou/uL (4.0-11.0)
[2020-09-11 03:45] LABS: ALBUMIN 2.4 g/dL (3.4-5.0); MAGNESIUM 2.7 mg/dL (1.8-2.4); TOTAL BILIRUBIN 0.4 mg/dL (<0.1-1.0); TOTAL PROTEIN 6.5 g/dL (6.4-8.2)
[2020-09-11 03:54] LABS: POTASSIUM 4.6 mmol/L (3.5-5.1)
[2020-09-11 08:11] LABS: PCO2 40.4 mmHg (35.0-45.0); PO2 72.2 mmHg (75.0-100.0); pH 7.359 (7.340-7.450)
--- NOTE | 2020-09-11 10:44 | CON ---
[address] [address] CONSULTATION Name: SANDRA ANGULO Room: [address] IN [facility].#: [id number] Admission: 09/05/20 Attend Phys: Angela Vázquez MD Discharge: Date of : 65 Report #: [id number] THIS REPORT FOR: //name// cc: SWATHI - No family physician/PCP FAM - No family physician/PCP ~ DATE OF SERVICE: 09/10/2020 CARDIOLOGY CONSULTATION HISTORY OF PRESENT ILLNESS: The patient is a 55-year-old white male who I was asked to see in the hospital today after he was noted to have a narrow complex tachycardia. The history is obtained from the chart, there are no family members available. The patient was actually admitted here back in 2015 with bronchitis. He has a long history of obesity and smoking. He has a history of testicular cancer. He was admitted here in 2017 with shortness of breath. He was felt to have COPD and was sent home with bronchodilators. The patient presented to the Emergency Room a week ago, 09/04. He apparently had tested positive for COVID-19. He then noticed increasing shortness of breath, some flank pain and a fever. He had some chills. Denies any chest pain, palpitation, syncope. He has been a 1 pack a day smoker, but quit 3 years ago. He has sleep apnea, uses CPAP. He has a history of deep venous thrombosis and pulmonary embolism. He took Eliquis for 6 months. The patient actually has been in the hospital for 5 days now. Because of increasing shortness of breath, he actually was intubated today and he was transferred to the ICU. On the monitor, he was noted to have a narrow complex tachycardia. I was asked to see him for further evaluation and treatment. PAST MEDICAL HISTORY: Significant for testicular cancer, inguinal hernia repair, nasal surgery. No history of hypertension, diabetes. He has sleep apnea. MEDICATIONS: At home included an inhaler, Eliquis, omeprazole. SOCIAL HISTORY: He has been a smoker. REVIEW OF SYSTEMS: No history of stroke, liver disease, kidney disease, cancer, psychiatric illness, chronic skin condition. PHYSICAL EXAMINATION: GENERAL: Revealed a middle-aged obese male, lying in bed. He appeared in no acute distress. VITAL SIGNS: He had a blood pressure of 120/70, pulse is 80. He is afebrile. HEENT: He was anicteric. Conjunctivae pink. Mucous membranes moist. NECK: Veins difficult to [place] [address] CONSULTATION Name: SANDRA ANGULO Room: [address]#: [id number] Admission: 09/05/20 Attend Phys: Angela Vázquez MD Discharge: Date of : 65 Report #: [id number] CHEST: Clear to auscultation. CARDIOVASCULAR: Regular rate and rhythm. ABDOMEN: Obese. EXTREMITIES: Had no pitting edema. Dorsalis pedis pulse could not be palpated. SKIN: Cool and dry. NEUROLOGIC: Nonfocal. RADIOLOGICAL DATA: His ECG on admission a week ago showed a sinus rhythm with no significant ST or T-wave change. Rhythm strip from this morning after the patient was intubated, showed a narrow complex tachycardia at 150 beats per minute, suggestive of either atrial fibrillation or atrial tachycardia with an increased ventricular response rate. He is currently in a sinus rhythm. His workup, the patient had a nuclear stress test here at [facility] in 2016 because of shortness of breath that is done with Lexiscan. Ejection fraction of 65%. There is no evidence of ischemia. His chest x-ray on admission 6 days ago showed cardiomegaly, interstitial infiltrates. Chest x-ray earlier today, bilateral infiltrates, mild cardiomegaly. He had a venous duplex scan of his legs done 4 days ago for swelling, which showed no DVT. LABORATORY WORK: Sodium 135, creatinine 0.9, glucose 174. Troponin 0.06. BNP 270. His white blood cell count 8.6, hematocrit 35.4. IMPRESSION AND RECOMMENDATIONS: 1. Narrow complex tachycardia. Cannot rule out atrial fibrillation or atrial flutter. I would aim for rate control at this time. If he has recurrent atrial fibrillation, would consider anticoagulation. 2. History of previous deep venous thrombosis. The patient has been on Eliquis. 3. Chronic obstructive pulmonary disease. 4. COVID-19. 5. Tobacco abuse. 6. Obesity. <ELECTRONICALLY SIGNED> By: Alli Hernandez MD, FACC 09/11/20 1044 1356 2033Djevon Hernandez MD, FACC /nt
--- NOTE | 2020-09-11 13:13 | EKG ---
[place] [address] ELECTROCARDIOGRAM REPORT Name: SANDRA ANGULO Room: [address] ADM IN M.R.#: [id number] Admission: 09/05/20 Attend Phys: Angela Vázquez, Discharge: Date of : 65 Date of Service: 09/11/20 1142 Report #: [id number] THIS REPORT FOR: //name// [facility] Test Date: 2020-09-11 Test Time: 11:42:47 Pat Name: SANDRA ANGULO Department: Room: [address] Gender: M Counter Checker: STEPHEN : 1965 Requested By: Alli Hernandez Order Number: [id number] Netta MD: Alli Hernandez Measurements Intervals [place] Rate: 50 P: 13 RI: 164 QRS: 10 QRSD: 117 T: 5 QT: 526 QTc: 480 Interpretive Statements Sinus bradycardia nonspecific t wave changes Nonspecific intraventricular conduction delay Compared to ECG 09/04/2020 19:37:50 Intraventricular conduction delay now present Sinus tachycardia no longer present Electronically Signed On 09-11-2020 13:13:41 CATALOG SPECIALIST by Alli Hernandez [email or web address] <ELECTRONICALLY SIGNED> By: Alli Hernandez MD, [facility] 09/11/20 1313 1142 1142 Alli Hernandez MD, [facility] /EPI
--- NOTE | 2020-09-11 14:30 | NUR ---
Nutirtion: Rec TF of Vital 1.2 with a goal rate of 70 ml/hr to provide 2016 kcal, 126 g protein and 1362 ml water; this meetnig 100% est kcal needs range >100% high-end est protein needs.
--- NOTE | 2020-09-11 15:33 | 2DMMODE ---
[place] [address] 2 D/M-MODE ECHOCARDIOGRAM Name: SANDRA ANGULO Room: [address] IN [facility]#: [id number] Admission: 09/05/20 Attend Phys: Angela Vázquez, Discharge: Date of : 65 Date of Service: 09/11/20 1533 Report #: [id number] THIS REPORT FOR: cc: FAM - No family physician/PCP FAM - No family physician/PCP Alli Hernandez MD [facility] ~ APPROVED REPORT Study performed: 09/11/2020 14:34:04 EXAM: Comprehensive 2D, Doppler, and color-flow Echocardiogram Patient Location: In-Patient Room #: 008 Status: routine BSA: 2.38 HR: 59 bpm BP: 115/69 mmHg Rhythm: NSR Other Information Study Quality: Fair Indications Dyspnea 2D Dimensions IVSd: 11.76 (7-11mm) LVOT Diam: 22.12 (18-24mm) LVDd: 49.93 mm PWd: 10.89 (7-11mm) Ascending Ao: 33.78 (22-36mm) LVDs: 31.99 (25-40mm) Aortic Root: 33.93 mm Aortic Valve AoV Peak Carlos.: 1.34 m/s AO Peak Gr.: 7.16 mmHg LVOT Max P.29 mmHg AO Mean Gr.: 4.08 mmHg LVOT Mean P.07 mmHg LVOT Max V: 1.25 m/s AO V2 VTI: 26.92 cm LVOT Mean V: 0.81 m/s JESUS (VTI): 3.40 cm2 LVOT V1 VTI: 23.81 cm Mitral Valve E/A Ratio: 1.29 MV Decel. Time: 195.84 ms MV E Max Carlos.: 0.80 m/[place] [address] 2 D/M-MODE ECHOCARDIOGRAM Name: SANDRA ANGULO Room: [address] IN [facility]#: [id number] Admission: 09/05/20 Attend Phys: Angela Vázquez, Discharge: Date of : 65 Date of Service: 09/11/20 1533 Report #: [id number] MV PHT: 56.79 ms MVA (PHT): 3.87 cm2 TDI E/Medial E': 8.89 Medial E' Carlos.: 0.09 m/s Pulmonary Valve PV Peak Carlos.: 1.14 m/s PV Peak Gr.: 5.17 mmHg Left Ventricle The left ventricle is normal size. There is normal LV segmental wall motion. There is normal left ventricular wall thickness. Left ventricular systolic function is normal. The left ventricular ejection fraction is within the normal range. LVEF is 60-65%. The left ventricular diastolic function is normal. Right Ventricle The right ventricle is normal size. The right ventricular systolic function is normal. Atria The left atrium size is normal. The right atrium size is normal. Aortic Valve The aortic valve is normal in structure. No aortic regurgitation is present. There is no aortic valvular stenosis. Mitral Valve The mitral valve is normal in structure. There is no mitral valve regurgitation noted. No evidence of mitral valve stenosis. Tricuspid Valve Tricuspid valve is not well visualized. Unable to assess PA pressure. Trace tricuspid regurgitation. Pulmonic Valve Pulmonic valve is not well visualized. There is no pulmonic valvular regurgitation. Great Vessels The aortic root is normal in size. IVC is normal in size and collapses >50% with [place] [address] 2 D/M-MODE ECHOCARDIOGRAM Name: FILIBERTODONSANDRA Chávez Room: [address] IN [facility]#: [id number] Admission: 09/05/20 Attend Phys: Angela Vázquez, Discharge: Date of : 65 Date of Service: 09/11/20 1533 Report #: [id number] There is no pericardial effusion. <Conclusion> Left ventricular systolic function is normal. The left ventricular ejection fraction is within the normal range. <ELECTRONICALLY SIGNED> By: Alli Hernandez MD, FACC 09/11/20 1533 1533 1533 Alli Hernandez MD, [facility] /INF
--- NOTE | 2020-09-11 15:34 | NUR ---
ICU rounds: Intubated. On Versed and Fentanyl. 100% Fio2.
--- NOTE | 2020-09-11 18:49 | NUR ---
THIS TAX EXPERT ASSUMED CARE OF PT AT 0700 ASSESSMENT CHARTED PT ON SEDATION AND PARALYTIC TOLERATING WELL. VITALS ALL WITHIN NORMAL RANGE PT HAD DESAT EPISODE DROPPED INTO THE 60'S PT WAS BAGGED BY RT STAT CHEST X RAY ORDERED DR HERNANDEZ NOTIFIED QUESTION THE NIMBEX MIXTURE ORDERED NEW BAG TO BE HUNG FOLLOWED BY VEC 10MG IVP PT SATS CAME BACK UP AND STABLE AT THIS ALOK
[2020-09-12] VITALS (83 sets, daily range): BP systolic 84–158; BP diastolic 52–73
[2020-09-12 09:32] LABS: HEMATOCRIT 35.8 % (42.0-52.0); HEMOGLOBIN 11.7 gm/dL (14.0-18.0); MCH 28.5 pg (26.0-34.0); MCHC 32.8 g/dL (28.0-37.0); MPV 7.9 fl. (7.2-11.1); RBC 4.12 mil/uL (4.50-6.00); RDW-CV 14.5 % (10.5-14.5)
[2020-09-12 09:35] LABS: CALCIUM 8.3 mg/dL (8.5-10.1); CREATININE 0.9 mg/dL (0.6-1.3); POTASSIUM 4.3 mmol/L (3.5-5.1)
--- NOTE | 2020-09-12 10:18 | EKG ---
[place] [address] ELECTROCARDIOGRAM REPORT Name: SANDRA ANGULO Room: [address] ADM IN M.R.#: [id number] Admission: 09/05/20 Attend Phys: Angela Vázquez, Discharge: Date of : 65 Date of Service: 09/12/20 0923 Report #: [id number] THIS REPORT FOR: //name// [facility] Test Date: 2020-09-12 Test Time: 09:23:26 Pat Name: SANDRA ANGULO Department: Room: [address] Gender: M Chief Chemist: STEPHEN : 1965 Requested By: Alli Hernandez Order Number: [id number] Reading MD: Alli Hernandez Measurements Intervals [place] Rate: 68 P: 24 MI: 157 QRS: 22 QRSD: 114 T: 9 QT: 448 QTc: 477 Interpretive Statements Sinus rhythm Borderline intraventricular conduction delay Abnormal R-wave progression, early transition Borderline prolonged QT interval Compared to ECG 09/11/2020 11:42:47 Sinus bradycardia no longer present Electronically Signed On 09-12-2020 10:18:02 BRAND ENGINEER by Alli Hernandez [email or web address] <ELECTRONICALLY SIGNED> By: Alli Hernandez MD, [facility] 09/12/20 1018 2 Alli Hernandez MD, [facility] /EPI
--- NOTE | 2020-09-12 16:02 | NUR ---
ICU rounds: Pt on vent, sedated and paralyzed. Fio2 at 100%. Tolerating tube feeds.
[2020-09-12 16:28] LABS: BE -4.5 mmol/L (-2 to +3); PCO2 46.7 mmHg (35.0-45.0); PO2 69.7 mmHg (75.0-100.0)
[2020-09-12 16:31] LABS: pH 7.296 (7.340-7.450)
--- NOTE | 2020-09-12 18:37 | NUR ---
VENT SUPPORT CONTD, RR INCREASED TO 20, OTHER SETTINGS UNCHANGED. VSS. NIMBEX DRIP CONTD AT 37.5 MLS/HR, FENT AND VERSED TO BE CONTD AT [address] MARY. NO PRESSORS REQUIRED THROUGHOUT THE SHIFT. TOLERATING TUBE FEEDS AT GOAL RATE. Q2 TURNS AND ORAL CARE GIVEN. UPDATED.
[2020-09-13] VITALS (48 sets, daily range): BP systolic 80–162; BP diastolic 54–74
[2020-09-13 02:07] LABS: MYCOPLASMA PNEUMONIA IgG 826 U/mL (0-99); MYCOPLASMA PNEUMONIA IgM <770 U/mL (0-769)
[2020-09-13 04:06] LABS: ABSOLUTE LYMPHOCYTES 0.6 thou/uL (0.8-5.3); ABSOLUTE MONOCYTES 0.7 thou/uL (0.0-1.2); ABSOLUTE NEUTROPHILS 10.9 thou/uL (1.6-8.1); BASOPHILS 0.1 %; HEMATOCRIT 35.1 % (42.0-52.0); HEMOGLOBIN 11.6 gm/dL (14.0-18.0); LYMPHOCYTES 5.2 %; MCH 28.5 pg (26.0-34.0); MCV 86.5 fL (80.0-100.0); MONOCYTES 5.9 %; MPV 7.2 fl. (7.2-11.1); NUCLEATED RBCS 0 /100WBC; PLATELET COUNT* 375 thou/uL (150-400); POLYS 88.8 %; RBC 4.06 mil/uL (4.50-6.00); RDW-CV 14.2 % (10.5-14.5); WBC 12.3 thou/uL (4.0-11.0)
[2020-09-13 05:00] LABS: ALBUMIN 2.5 g/dL (3.4-5.0); CALCIUM 7.8 mg/dL (8.5-10.1); CREATININE 0.8 mg/dL (0.6-1.3); MAGNESIUM 2.6 mg/dL (1.8-2.4); POTASSIUM 4.2 mmol/L (3.5-5.1); TOTAL BILIRUBIN 0.3 mg/dL (<0.1-1.0); TOTAL PROTEIN 6.3 g/dL (6.4-8.2)
[2020-09-13 08:38] LABS: BE 0.6 mmol/L (-2 to +3); PCO2 43.9 mmHg (35.0-45.0); PO2 88.4 mmHg (75.0-100.0); pH 7.388 (7.340-7.450)
--- NOTE | 2020-09-13 09:32 | NUR ---
Nutrition: Pt appears to be tolerating TF at goal rate. No significant wt change, continue with est needs. TF meeting 100% est kcal and >100% high-end est protein needs. TF providing 1362 ml water daily; if no IVF pt would need at least 700 ml water via flush to provide 2062 ml daily.
--- NOTE | 2020-09-13 14:15 | NUR ---
ICU rounds: Covid positive, in iso. Intubated. Nimbex gtt. Tube feeds
[2020-09-13 17:37] LABS: BE 3.6 mmol/L (-2 to +3); PCO2 49.5 mmHg (35.0-45.0); PO2 78.3 mmHg (75.0-100.0); pH 7.391 (7.340-7.450)
[2020-09-13 17:50] LABS: CREATININE 0.8 mg/dL (0.6-1.3); MAGNESIUM 2.8 mg/dL (1.8-2.4); POTASSIUM 4.3 mmol/L (3.5-5.1)
--- NOTE | 2020-09-13 19:38 | NUR ---
PT REMAINS INTUBATED PER ORDERED SETTINGS.SEDATED ON FENTANYL,VERSED, AND PROPOFOL.NIMBEX GTT STOPPED PER ORDERS WITH VEC PUSHES ORDERED PRN.PT DESATS IN THE 80s AND STACKS BREATH WHEN VEC WEARS OFF.ISOLATION MAINTAINED FOR COVID.WILL CONTINUE TO MONITOR FOR DURATION OF SHIFT.
[2020-09-13 20:07] LABS: BE -1.9 mmol/L (-2 to +3); PO2 65.8 mmHg (75.0-100.0)
[2020-09-13 20:11] LABS: PCO2 62.1 mmHg (35.0-45.0); pH 7.249 (7.340-7.450)
[2020-09-14] VITALS (51 sets, daily range): BP systolic 105–173; BP diastolic 50–76
[2020-09-14 03:54] LABS: LIPASE 81 U/L (73-393); TRIGLYCERIDE 226 mg/dL (<150)
--- NOTE | 2020-09-14 07:14 | NUR ---
ASSUMED CARE OF PT 09/13 @ 1900. O2 85%-88% ON THE MONITOR. PT SUCTIONED, REPOSITONED WITH NO IMPROVEMENT. ABG ORDERED. DR. HERNANDEZ NOTIFIED. ORDER TO RESUME NIMBEX AND 37.5, INCREASE VERSED TO 20MG/HR AND TITRATE OFF PROPOFOL. O2 IMPROVED TO >95% PER MONITOR. PT ROLLED TO CHANGE SHEETS. DESAT TO 87%. TOOK 30MIN. TO RETURN TO 94%. REPEAT ABG ORDERED FOR 09/14 @ 0800. OTHER VITAL SIGNS REMAIN STABLE AND WITH NORMAL LIMITS. LASIX GIVEN ORDERED 2500ML OUT. VITAL AF INFUSING AT 70ML/HR. RESIDUALS ASSESSED 150-200ML Q4. NO BM.
[2020-09-14 08:04] LABS: HEMATOCRIT 35.6 % (42.0-52.0); HEMOGLOBIN 11.5 gm/dL (14.0-18.0); MCH 28.2 pg (26.0-34.0); MCHC 32.3 g/dL (28.0-37.0); MCV 87.2 fL (80.0-100.0); MPV 8.1 fl. (7.2-11.1); RBC 4.08 mil/uL (4.50-6.00); RDW-CV 14.9 % (10.5-14.5); WBC 17.9 thou/uL (4.0-11.0)
[2020-09-14 08:06] LABS: CREATININE 0.7 mg/dL (0.6-1.3); POTASSIUM 4.1 mmol/L (3.5-5.1)
[2020-09-14 08:10] LABS: ALBUMIN 2.6 g/dL (3.4-5.0); MAGNESIUM 2.8 mg/dL (1.8-2.4); PHOSPHORUS* 2.7 mg/dL (2.5-4.9); TOTAL BILIRUBIN 0.2 mg/dL (<0.1-1.0); TOTAL PROTEIN 6.5 g/dL (6.4-8.2)
[2020-09-14 08:52] LABS: BE 1.4 mmol/L (-2 to +3)
[2020-09-14 08:58] LABS: PCO2 56.9 mmHg (35.0-45.0)
--- NOTE | 2020-09-14 14:55 | NUR ---
ICU rounds: Remains on vent. Paralyzed. FIO2 90%. Tube feeds
[2020-09-14 15:07] LABS: PO2 65.6 mmHg (75.0-100.0); pH 7.452 (7.340-7.450)
[2020-09-14 15:09] LABS: PCO2 52.2 mmHg (35.0-45.0)
[2020-09-14 15:15] LABS: CALCIUM 8.1 mg/dL (8.5-10.1); CREATININE 0.7 mg/dL (0.6-1.3); MAGNESIUM 2.7 mg/dL (1.8-2.4); POTASSIUM 4.2 mmol/L (3.5-5.1)
--- NOTE | 2020-09-14 20:53 | NUR ---
VSS. SEDATED ON VENT. PRECEDEX GTT STARTED TODAY PER DR HERNANDEZ IN HOPE OF TITRATING TO MAX IF HR REMAINS >50 TO INCREASE LIKELIHOOD OF DC'ING NIMBEX TOMORROW. TURNED Q2HR THROUGHOUT THE SHIFT.
[2020-09-15] VITALS (44 sets, daily range): BP systolic 99–156; BP diastolic 58–91
[2020-09-15 03:11] LABS: HEMATOCRIT 37.6 % (42.0-52.0); MCH 28.1 pg (26.0-34.0); MCV 87.9 fL (80.0-100.0); MPV 7.6 fl. (7.2-11.1); NUCLEATED RBCS 0 /100WBC; PLATELET COUNT* 398 thou/uL (150-400); RBC 4.27 mil/uL (4.50-6.00); RDW-CV 14.9 % (10.5-14.5); WBC 14.9 thou/uL (4.0-11.0)
[2020-09-15 03:37] LABS: PHOSPHORUS* 2.7 mg/dL (2.5-4.9)
[2020-09-15 04:07] LABS: ALBUMIN 2.6 g/dL (3.4-5.0); CALCIUM 7.9 mg/dL (8.5-10.1); CREATININE 0.7 mg/dL (0.6-1.3); MAGNESIUM 2.6 mg/dL (1.8-2.4); POTASSIUM 4.6 mmol/L (3.5-5.1); TOTAL BILIRUBIN 0.3 mg/dL (<0.1-1.0); TOTAL PROTEIN 6.7 g/dL (6.4-8.2)
--- NOTE | 2020-09-15 07:32 | NUR ---
NAVARRO TEMP PROBE INSERTED AT 2200.
[2020-09-15 08:28] LABS: ABSOLUTE LYMPHOCYTES 0.3 thou/uL (0.8-5.3); ABSOLUTE MONOCYTES 0.9 thou/uL (0.0-1.2); ABSOLUTE NEUTROPHILS 13.7 thou/uL (1.6-8.1); METAMYELOCYTES 1 %; MYELOCYTES 1 %; PLATELET ESTIMATE ADEQUATE
[2020-09-15 09:01] LABS: BE -0.2 mmol/L (-2 to +3); PO2 75.2 mmHg (75.0-100.0)
[2020-09-15 09:05] LABS: PCO2 73.5 mmHg (35.0-45.0); pH 7.219 (7.340-7.450)
[2020-09-15 10:38] LABS: BE -0.2 mmol/L (-2 to +3); PO2 67.7 mmHg (75.0-100.0)
[2020-09-15 10:44] LABS: PCO2 67.9 mmHg (35.0-45.0); pH 7.243 (7.340-7.450)
[2020-09-15 15:08] LABS: BE 2.9 mmol/L (-2 to +3)
[2020-09-15 15:10] LABS: pH 7.297 (7.340-7.450)
--- NOTE | 2020-09-15 17:47 | NUR ---
PT'S OXYGEN SATURATION DECREASING DESPITE 100 PERCENT FIO2 ON MECHANICAL VENTILATION. REPEAT CHEST XRY, LASIX AND NEBS PER DR. ELIAS. CONTINUE FREQUENT TURNS AND ORAL CARE. DR BRISCOE INSTRUCT HEPARIN GTT AND STOP TUBE FEEDING.
[2020-09-15 21:24] LABS: BE 3.8 mmol/L (-2 to +3); PO2 67.3 mmHg (75.0-100.0); pH 7.327 (7.340-7.450)
[2020-09-15 21:28] LABS: PCO2 61.6 mmHg (35.0-45.0)
[2020-09-16] VITALS (33 sets, daily range): BP systolic 107–230; BP diastolic 58–92
[2020-09-16 06:52] LABS: HEMATOCRIT 36.6 % (42.0-52.0); HEMOGLOBIN 12.1 gm/dL (14.0-18.0); MCH 28.5 pg (26.0-34.0); MCHC 32.9 g/dL (28.0-37.0); MCV 86.5 fL (80.0-100.0); MPV 7.4 fl. (7.2-11.1); RBC 4.23 mil/uL (4.50-6.00); WBC 17.6 thou/uL (4.0-11.0)
[2020-09-16 07:05] LABS: ALBUMIN 2.3 g/dL (3.4-5.0); CALCIUM 8.4 mg/dL (8.5-10.1); CREATININE 0.6 mg/dL (0.6-1.3); MAGNESIUM 2.4 mg/dL (1.8-2.4); POTASSIUM 4.8 mmol/L (3.5-5.1); TOTAL BILIRUBIN 0.3 mg/dL (<0.1-1.0); TOTAL PROTEIN 6.3 g/dL (6.4-8.2)
[2020-09-16 08:56] LABS: BE 7.1 mmol/L (-2 to +3); PO2 66.8 mmHg (75.0-100.0); pH 7.432 (7.340-7.450)
[2020-09-16 09:00] LABS: PCO2 50.1 mmHg (35.0-45.0)
[2020-09-16 18:07] LABS: BE 6.6 mmol/L (-2 to +3); pH 7.359 (7.340-7.450)
[2020-09-17] VITALS (67 sets, daily range): BP systolic 62–224; BP diastolic 36–92
[2020-09-17 02:19] LABS: MCH 28.1 pg (26.0-34.0); MCHC 32.5 g/dL (28.0-37.0); MCV 86.3 fL (80.0-100.0); MPV 7.3 fl. (7.2-11.1); RBC 4.63 mil/uL (4.50-6.00); WBC 25.6 thou/uL (4.0-11.0)
[2020-09-17 02:28] LABS: ALBUMIN 2.5 g/dL (3.4-5.0); CALCIUM 8.2 mg/dL (8.5-10.1); CREATININE 0.7 mg/dL (0.6-1.3); MAGNESIUM 2.2 mg/dL (1.8-2.4); POTASSIUM 3.9 mmol/L (3.5-5.1); TOTAL BILIRUBIN 0.4 mg/dL (<0.1-1.0)
[2020-09-17 03:48] LABS: BE 6.1 mmol/L (-2 to +3)
[2020-09-17 03:50] LABS: PO2 55.3 mmHg (75.0-100.0)
--- NOTE | 2020-09-17 07:13 | NUR ---
ASSUMED CARE OF PT @ 1930. PT HYPERTENSIVE 220'S/90'S. PRECEDEX AND VERSED GTT RATES INCREASED. PRN FENTANYL AND HYDRALAZINE GIVEN WITH NO IMPROVEMENT. PHYSICIAN NOTIFIED. ORDER FOR LASIX WITH RESULTS. 2350 OUTPUT OF CLEAR STRAW URINE PER NAVARRO. BP IMPROVED OVERNIGHT TO SBP 120-130'S. LABS REMAIN UNCHANGED EXCEPT FOR WBC INCREASE TO 25.6 ABG RESULTS PCO2 52.0, PO2 55.3. CALLED PHYSICIAN. STATED HE WAS "OK WITH THAT" NO VENT CHANGES MADE AT THIS TIME. REPORT GIVEN TO DAY SHIFT RN AT 0720
[2020-09-17 10:32] LABS: BE 10.3 mmol/L (-2 to +3); PO2 62.1 mmHg (75.0-100.0); pH 7.445 (7.340-7.450)
[2020-09-17 10:35] LABS: PCO2 54.2 mmHg (35.0-45.0)
--- NOTE | 2020-09-17 14:40 | NUR ---
ICU rounds: Remains on vent, fio2 100%. Working on sedation. Remains paralyzed. CXR unchanged. Nurse updated .
--- NOTE | 2020-09-17 15:52 | NUR ---
HYPOTENSIVE, 60s/30s (MAP MID 40s) WITH NO CHANGE IN IV DRIPS OR MEDS. A-LINE TRANSDUCER RELEVELED AND ZEROED TO ENSURE ACCURATE READING, NO CHANGE IN BP. PASSIVE LEG RAISE PERFORMED, BOTH LEGS HELD AT 45 DEGREES FOR 2 MINUTES WITH INCREASE IN BP TO 84/47(59) IN LESS THAN ONE MINUTES. INITIATED 500ML NS BOLUS PER ICU PROTOCOL, INFUSING AT THIS TIME.
--- NOTE | 2020-09-17 16:03 | NUR ---
BOLUS COMPLETED AT 1600, CURRENT BP 96/50(65). ATTEMPTED TO PAGE DR HERNANDEZ PRIOR TO HANGING BOLUS, AWAITING RETURN CALL.
--- NOTE | 2020-09-17 16:08 | 2DMMODE ---
[place] [address] 2 D/M-MODE ECHOCARDIOGRAM Name: FILIBERTOSANDRA OCHOA Kyler Room: 007-P [facility] IN [facility]#: [id number] Admission: 09/05/20 Attend Phys: Angela Vázquez, Discharge: Date of : 65 Date of Service: 09/17/20 1608 Report #: [id number] THIS REPORT FOR: cc: FAM - No family physician/PCP FAM - No family physician/PCP Jatin Brian MD [facility] ~ APPROVED REPORT Study performed: 09/17/2020 14:10:08 EXAM: Limited 2D Echocardiogram Patient Location: In-Patient Room #: 007 Status: routine BSA: 2.33 HR: 85 bpm BP: 104/50 mmHg Rhythm: NSR Indications Dyspnea Rule out pericardial effusion Left Ventricle The left ventricle is normal size. There is normal LV segmental wall motion. There is normal left ventricular wall thickness. The left ventricular systolic function is normal. The left ventricular ejection fraction is within the normal range. LVEF is 60-65%. Right Ventricle The right ventricle is normal size. The right ventricular systolic function is normal. Atria The left atrium size is normal. The right atrium size is normal. Aortic Valve The aortic valve is normal in structure. Mitral Valve The mitral valve is normal in structure. Tricuspid Valve Tricuspid valve [place] [address] 2 D/M-MODE ECHOCARDIOGRAM Name: SANDRA ANGULO Room: [address] IN M.R.#: [id number] Admission: 09/05/20 Attend Phys: Angela Vázquez, Discharge: Date of : 65 Date of Service: 09/17/20 1608 Report #: [id number] Pulmonic Valve Pulmonic valve is not well visualized. Great Vessels The aortic root is normal in size. IVC is normal in size. Pericardium There is no pericardial effusion. <Conclusion> The left ventricle is normal size. There is normal left ventricular wall thickness. The left ventricular systolic function is normal. The left ventricular ejection fraction is within the normal range. LVEF is 60-65%. The right ventricle is normal size. The left atrium size is normal. The aortic valve is normal in structure. The mitral valve is normal in structure. IVC is normal in size. There is no pericardial effusion. There is normal LV segmental wall motion. <ELECTRONICALLY SIGNED> By: Jatin Brain MD, [facility] 09/17/20 1608 1608 1608 Jatin Brian MD, [facility] /INF
[2020-09-17 17:42] LABS: BE 7.6 mmol/L (-2 to +3); pH 7.426 (7.340-7.450)
[2020-09-17 17:53] LABS: CALCIUM 8.3 mg/dL (8.5-10.1); CREATININE 0.7 mg/dL (0.6-1.3); MAGNESIUM 2.3 mg/dL (1.8-2.4); POTASSIUM 3.9 mmol/L (3.5-5.1)
[2020-09-17 17:57] LABS: PCO2 51.9 mmHg (35.0-45.0)
[2020-09-17 18:58] LABS: URINE BILIRUBIN NEGATIVE (Negative); URINE BLOOD 2+ (Negative); URINE CLARITY CLEAR; URINE COLOR YELLOW; URINE GLUCOSE-RANDOM NEGATIVE (Negative); URINE KETONES NEGATIVE (Negative); URINE LEUKOCYTES-REFLEX NEGATIVE (Negative); URINE NITRITE-REFLEX NEGATIVE (Negative); URINE PROTEIN TRACE (Negative); URINE SPECIFIC GRAVITY <= 1.005 (1.005-1.030); URINE UROBILINOGEN 0.2 E.U./dl (0.2-1.0)
[2020-09-17 19:22] LABS: CASTS None Seen /LPF (None Seen); CRYSTALS None Seen /LPF (None Seen); SQUAMOUS 0-3 Few /LPF (0-3); URINE WBC-REFLEX 6-15 Few /HPF (0-5); YEAST-REFLEX Present (None Seen)
--- NOTE | 2020-09-17 20:13 | NUR ---
EARLY IN SHIFT PT HYPERTENSIVE, SBP 190s-210s. DR BRISCOE ON UNIT AND CONCERNED THIS MAY BE NEUROLOGICAL, PER HIS REQUEST NIMBEX TURNED OFF AT THAT TIME (0935). ONE HOUR LATER PT THRASHING IN BED, CALMED SOMEWHAT WHEN SPOKEN TO AND TURNED HEAD TOWARD THIS RN WHEN ASKED TO LOOK TOWARD ME. DR HERNANDEZ ON UNIT AT THAT TIME, PER HIS ORDER THE FOLLOWING TITRATIONS WERE MADE: INCREASE VERSED TO 20MG/HR, FENTANYL TO 150MCG/HR, AND PRECEDEX TO 1.4MCG/KG/MIN. DR HERNANDEZ DC'D NIMBEX AND STATED PRN VECURONEUM IVP CAN BE USED. ALL CRITICAL LABS CALLED TO MARY TODAY. THIS EVENING, NG OUTPUT MUCH DARKER THAN EARLIER-SAMPLE SENT FOR HEMOCCULT. TURNED Q2HR THROUGHOUT THE SHIFT.
[2020-09-18] VITALS (72 sets, daily range): BP systolic 97–158; BP diastolic 51–67
[2020-09-18 04:07] LABS: HEMATOCRIT 34.6 % (42.0-52.0); HEMOGLOBIN 11.3 gm/dL (14.0-18.0); MCH 28.2 pg (26.0-34.0); MCHC 32.6 g/dL (28.0-37.0); MCV 86.6 fL (80.0-100.0); MPV 7.5 fl. (7.2-11.1); NUCLEATED RBCS 0 /100WBC; RDW-CV 15.2 % (10.5-14.5); WBC 19.2 thou/uL (4.0-11.0)
[2020-09-18 04:15] LABS: PLATELET COUNT* 336 thou/uL (150-400)
[2020-09-18 04:23] LABS: ALBUMIN 1.8 g/dL (3.4-5.0); CREATININE 0.6 mg/dL (0.6-1.3); MAGNESIUM 2.3 mg/dL (1.8-2.4); POTASSIUM 4.2 mmol/L (3.5-5.1); TOTAL BILIRUBIN 0.4 mg/dL (<0.1-1.0); TOTAL PROTEIN 5.9 g/dL (6.4-8.2)
[2020-09-18 04:26] LABS: PHOSPHORUS* 2.9 mg/dL (2.5-4.9)
[2020-09-18 05:50] LABS: ABSOLUTE EOSINOPHILS 0.2 thou/uL (0.0-0.7); ABSOLUTE LYMPHOCYTES 0.4 thou/uL (0.8-5.3); ABSOLUTE NEUTROPHILS 17.7 thou/uL (1.6-8.1); PLATELET ESTIMATE ADEQUATE
[2020-09-18 05:51] LABS: ANISOCYTOSIS 1+; LARGE PLATELETS RARE; POIKILOCYTOSIS 1+
[2020-09-18 08:55] LABS: BE 2.1 mmol/L (-2 to +3); PO2 63.4 mmHg (75.0-100.0); pH 7.401 (7.340-7.450)
--- NOTE | 2020-09-18 14:26 | NUR ---
ICU rounds: Covid positive. On vent. Fio2 at 100%, peep 16. Off paralytic. On Precedex. Leno today. Hep gtt. Stopped TF. No BM since admit.
[2020-09-18 17:25] LABS: BE 5.8 mmol/L (-2 to +3); pH 7.436 (7.340-7.450)
[2020-09-18 17:33] LABS: CALCIUM 8.3 mg/dL (8.5-10.1); CREATININE 0.5 mg/dL (0.6-1.3); MAGNESIUM 2.4 mg/dL (1.8-2.4); POTASSIUM 3.6 mmol/L (3.5-5.1)
[2020-09-18 17:40] LABS: PO2 59.8 mmHg (75.0-100.0)
--- NOTE | 2020-09-18 20:01 | NUR ---
VENT SUPP CONTD, RR DOWN TO 22, OTHER SETTINGS UNCHANGED. TUBE FEEDS RESTARTED WITH VITAL HP, GOAL 50 MLS/HR PER DRYER FEEDER. OPENS EYES TO PAIN, SEDATION CONTD WITH VERSED, FENTANYL AND PRECEDEX. Q2 TURNS AND ORAL CARE GIVEN. , JOSE UPDATED.
[2020-09-19] VITALS (31 sets, daily range): BP systolic 107–176; BP diastolic 51–68
[2020-09-19 05:33] LABS: ABSOLUTE LYMPHOCYTES 0.4 thou/uL (0.8-5.3); ABSOLUTE MONOCYTES 0.7 thou/uL (0.0-1.2); ABSOLUTE NEUTROPHILS 14.4 thou/uL (1.6-8.1); BASOPHILS 0.1 %; HEMATOCRIT 32.2 % (42.0-52.0); HEMOGLOBIN 10.6 gm/dL (14.0-18.0); LYMPHOCYTES 2.3 %; MCH 28.5 pg (26.0-34.0); MCHC 33.1 g/dL (28.0-37.0); MCV 86.1 fL (80.0-100.0); MONOCYTES 4.3 %; MPV 7.7 fl. (7.2-11.1); NUCLEATED RBCS 0 /100WBC; PLATELET COUNT* 292 thou/uL (150-400); POLYS 93.3 %; RBC 3.74 mil/uL (4.50-6.00); RDW-CV 15.5 % (10.5-14.5); WBC 15.4 thou/uL (4.0-11.0)
[2020-09-19 05:48] LABS: ALBUMIN 2.3 g/dL (3.4-5.0); CREATININE 0.6 mg/dL (0.6-1.3); MAGNESIUM 2.3 mg/dL (1.8-2.4); POTASSIUM 3.9 mmol/L (3.5-5.1); TOTAL BILIRUBIN 0.5 mg/dL (<0.1-1.0); TOTAL PROTEIN 5.9 g/dL (6.4-8.2)
--- NOTE | 2020-09-19 07:34 | NUR ---
ASSESSMENTS CHARTED. PATIENT INCREASINGLY RESTLESS ON CURRENT SEDATION. PROPOFOL STARTED OVERNIGHT. REMAINS OFF PARALYTICS. TUBE FEEDING INCREASED OVERNIGHT.
[2020-09-19 08:32] LABS: BE 4.4 mmol/L (-2 to +3); PCO2 44.9 mmHg (35.0-45.0); PO2 60.7 mmHg (75.0-100.0); pH 7.432 (7.340-7.450)
--- NOTE | 2020-09-19 15:08 | NUR ---
ICU rounds: Remains intubated and sedated, fio2 @ 100%. Wean sedation. Continue current POC
[2020-09-20] VITALS (49 sets, daily range): BP systolic 105–167; BP diastolic 60–72
[2020-09-20 05:19] LABS: ABSOLUTE LYMPHOCYTES 0.3 thou/uL (0.8-5.3); ABSOLUTE MONOCYTES 0.8 thou/uL (0.0-1.2); ABSOLUTE NEUTROPHILS 14.7 thou/uL (1.6-8.1); HEMATOCRIT 30.6 % (42.0-52.0); HEMOGLOBIN 10.2 gm/dL (14.0-18.0); LYMPHOCYTES 2.1 %; MCH 29.1 pg (26.0-34.0); MCHC 33.5 g/dL (28.0-37.0); MCV 86.9 fL (80.0-100.0); MONOCYTES 4.9 %; MPV 7.9 fl. (7.2-11.1); NUCLEATED RBCS 0 /100WBC; PLATELET COUNT* 298 thou/uL (150-400); RBC 3.52 mil/uL (4.50-6.00); RDW-CV 15.4 % (10.5-14.5); WBC 15.9 thou/uL (4.0-11.0)
[2020-09-20 05:42] LABS: ALBUMIN 2.4 g/dL (3.4-5.0); CALCIUM 8.1 mg/dL (8.5-10.1); CREATININE 0.6 mg/dL (0.6-1.3); MAGNESIUM 2.4 mg/dL (1.8-2.4); POTASSIUM 4.1 mmol/L (3.5-5.1); TOTAL BILIRUBIN 0.5 mg/dL (<0.1-1.0); TOTAL PROTEIN 6.2 g/dL (6.4-8.2)
[2020-09-20 08:52] LABS: BE 4.8 mmol/L (-2 to +3); PO2 64.5 mmHg (75.0-100.0); pH 7.336 (7.340-7.450)
[2020-09-20 08:54] LABS: PCO2 61.6 mmHg (35.0-45.0)
[2020-09-20 13:52] LABS: BE 6.3 mmol/L (-2 to +3); pH 7.313 (7.340-7.450)
[2020-09-20 13:56] LABS: PCO2 69.8 mmHg (35.0-45.0); PO2 52.6 mmHg (75.0-100.0)
[2020-09-20 14:01] LABS: CALCIUM 8.1 mg/dL (8.5-10.1); CREATININE 0.5 mg/dL (0.6-1.3); POTASSIUM 3.9 mmol/L (3.5-5.1)
[2020-09-20 14:04] LABS: PHOSPHORUS* 3.3 mg/dL (2.5-4.9)
--- NOTE | 2020-09-20 14:56 | NUR ---
ICU rounds: Remains on vent, sedated. Wound care consult. Not following commands. Remains full code
[2020-09-20 16:47] LABS: BE 8.5 mmol/L (-2 to +3); pH 7.353 (7.340-7.450)
[2020-09-20 16:49] LABS: PCO2 66.8 mmHg (35.0-45.0)
[2020-09-20 16:50] LABS: PO2 47.9 mmHg (75.0-100.0)
[2020-09-20 17:06] LABS: CALCIUM 8.5 mg/dL (8.5-10.1); CREATININE 0.6 mg/dL (0.6-1.3); MAGNESIUM 2.1 mg/dL (1.8-2.4)
--- NOTE | 2020-09-20 18:56 | NUR ---
LATE ENTRY: APPROX 1030 PT NOT SYNCHING W/ VENT. MAX SEDATION ADMINISTERED. VECURONIUM ORDERED AND ADMINISTERED. PT SATURATION BEGAN TO DECLINE INTO 80'S AND SUSTAIN AT APPROX NOON. RT CALLED TO ROOM. PT SAT DECREASED INTO 70'S. DR HERNANDEZ AND DR CHANDRA CALLED TO ROOM. CYLINDER MACHINE OPERATOR PULP DRIER NOTIFIED. RT BEGAN TO BAG PT W/ PEEP VALVE. SATS SUSTAINED IN 70'S. PLACED BACK ON VENTILATOR W/ VENT ADJUSTMENTS BY DR HERNANDEZ AND RT. THIS RN AT BEDSIDE. MEDICATIONS ADMINISTERED PER ORDER. CYLINDER MACHINE OPERATOR PULP DRIER NOTIFIED WHO CAME TO HOSPITAL AND HAD IN PERSON DISCUSSION R/T FURTHER CARE W/ DR CHANDRA. AT THIS TIME PT REMAINS FULL CODE. ESR: PT BEGAN TO HAVE INCREASED HR, ECTOPY AND AND RUNS OF SVT SUSTAINED FOR EXTENDED PERIOD OF TIME W/ RATE IN 200'S. DURING EPISODES OF SVT ARTERIAL LINE NOT SHOWING BP D/T LACK OF PERFUSION. ABLE TO FEEL FAINT PULSE. WHEN OUT OF SVT BP SHOWING HYPERTENSION W/ SAT STILL IN LOW TO MID 80'S. W/ FREQUENT RUNS OF SVT DR MARY BRYSON. RESIDENT DOCTOR ALSO NOTIFIED DR QUIROZ OF PT SITUATION. DR QUIROZ PRESENTED TO ROOM AND THIS RN GAVE FULL REPORT. DR QUIROZ SPOKE W/ R/T SITUATION. WISHES PT TO REMAIN FULL CODE. HEPARIN GTT STARTED PER ORDER. TF CONT TO BE ON HOLD. PT NOT TOLERATING TURNS SINCE THIS AM. PREVIOUSLY OCCASSIONALLY SLIGHT TURNS TO RT SIDE. THIS AM PT LOG ROLLED SIDE TO SIDE D/T BM. LARGE AMNT OF ORAL SECRETIONS. ORAL CARE COMPLETED TOLERATED. TEMP FLUCTUATING BETWEEN 99.9 AND 100.2 F VIA CORE. ABD REMAINS DISTENDED. Kyler DRUMMOND, RN
[2020-09-21] VITALS (77 sets, daily range): BP systolic 83–172; BP diastolic 50–75
[2020-09-21 05:21] LABS: HEMATOCRIT 32.4 % (42.0-52.0); HEMOGLOBIN 10.7 gm/dL (14.0-18.0); MCH 28.6 pg (26.0-34.0); MCHC 33.2 g/dL (28.0-37.0); MCV 86.3 fL (80.0-100.0); MPV 7.6 fl. (7.2-11.1); NUCLEATED RBCS 0 /100WBC; PLATELET COUNT* 270 thou/uL (150-400); RBC 3.75 mil/uL (4.50-6.00); RDW-CV 15.4 % (10.5-14.5); WBC 17.2 thou/uL (4.0-11.0)
[2020-09-21 05:40] LABS: ALBUMIN 2.4 g/dL (3.4-5.0); ALKALINE PHOSPHATASE 110 U/L (46-116); ANION GAP < 0 mmol/L (7-16); BUN 21 mg/dL (7-18); CHLORIDE 96 mmol/L (98-107); CO2 41 mmol/L (21-32); CREATININE 0.6 mg/dL (0.6-1.3); GLUCOSE 136 mg/dL (70-99); MAGNESIUM 2.1 mg/dL (1.8-2.4); PHOSPHORUS* 3.5 mg/dL (2.5-4.9); POTASSIUM 3.9 mmol/L (3.5-5.1); SGOT 43 U/L (15-37); SGPT 50 U/L (30-65); SODIUM 136 mmol/L (136-145); TOTAL BILIRUBIN 0.5 mg/dL (<0.1-1.0); TOTAL PROTEIN 6.5 g/dL (6.4-8.2)
[2020-09-21 06:35] LABS: ABSOLUTE LYMPHOCYTES 0.5 thou/uL (0.8-5.3); ABSOLUTE NEUTROPHILS 16.7 thou/uL (1.6-8.1); ATYPICAL LYMPHS 1 %; PLATELET ESTIMATE ADEQUATE
[2020-09-21 08:22] LABS: pH 7.426 (7.340-7.450)
[2020-09-21 08:25] LABS: PCO2 69.6 mmHg (35.0-45.0); PO2 58.6 mmHg (75.0-100.0)
--- NOTE | 2020-09-21 13:00 | NUR ---
ICU rounds: No changes. Remains on vent and sedated. Fio2 at 100%. No tube feeds, d/t bleeding. Hep gtt stopped.
--- NOTE | 2020-09-21 15:37 | NUR ---
WOUND NURSE: PATIENT SEEN AT REQUEST OF NURSE, ROBB, CARING FOR THE PATIENT. PATIENT WITH BLISTERING SKIN ON BUTTOCKS AND PURPLISH RED, NONBLANCHEABLE SKIN. BLISTER ON RIGHT BUTTOCK MEASURES 4 X 4 X 0.1 CM. CLEANSED WITH SOAP AND WATER, RINSED, THEN PATTED DRY. APPLIED SKIN PREP TO PERIWOUND TISSUE. APPLIED EXUDERM LP TO EACH BUTTOCK. PATIENT HAS NOT BEEN ABLE TO BE ROUTINELY REPOSITIONED D/T INTOLERANCE WITH DESATURATION WITH ATTEMPTS PER HIS NURSE. PATIENT ALSO WITH RASH PRESENTING RED PATCHES. PROVIDED INTERDRY AND PHYTOPLEX AF TO COMBAT THIS. PATIENT ALSO HAS RECTAL TUBE IN PLACE. SLIGHT RASH IN FOLDS OF NECK AND RECOMMEND NONWOVEN GAUZE BE PLACED IN CREASES PRN. LEFT BUTTOCK IS INTACT BUT ANTICIPATE THIS WILL RUPTURE INTO PARTIAL THICKNESS EROSION ALSO.
[2020-09-21 17:37] LABS: BE 13.8 mmol/L (-2 to +3); pH 7.427 (7.340-7.450)
[2020-09-21 17:43] LABS: PCO2 63.4 mmHg (35.0-45.0); PO2 55.2 mmHg (75.0-100.0)
[2020-09-21 18:07] LABS: ABSOLUTE LYMPHOCYTES 0.4 thou/uL (0.8-5.3); ABSOLUTE NEUTROPHILS 16.6 thou/uL (1.6-8.1); BASOPHILS 0.1 %; EOSINOPHILS 0.1 %; HEMATOCRIT 34.6 % (42.0-52.0); HEMOGLOBIN 11.3 gm/dL (14.0-18.0); LYMPHOCYTES 2.4 %; MCH 28.3 pg (26.0-34.0); MCHC 32.6 g/dL (28.0-37.0); MCV 86.8 fL (80.0-100.0); MONOCYTES 5.6 %; MPV 8.3 fl. (7.2-11.1); NUCLEATED RBCS 0 /100WBC; PLATELET COUNT* 282 thou/uL (150-400); POLYS 91.8 %; RBC 3.98 mil/uL (4.50-6.00); RDW-CV 15.4 % (10.5-14.5)
[2020-09-21 18:28] LABS: CALCIUM 8.3 mg/dL (8.5-10.1); CREATININE 0.7 mg/dL (0.6-1.3); MAGNESIUM 2.1 mg/dL (1.8-2.4); POTASSIUM 3.5 mmol/L (3.5-5.1)
[2020-09-21 22:13] LABS: BE 15.7 mmol/L (-2 to +3); pH 7.395 (7.340-7.450)
[2020-09-21 22:14] LABS: HEMATOCRIT 32.7 % (42.0-52.0); HEMOGLOBIN 10.7 gm/dL (14.0-18.0); MCH 28.3 pg (26.0-34.0); MCHC 32.7 g/dL (28.0-37.0); MCV 86.7 fL (80.0-100.0); RBC 3.77 mil/uL (4.50-6.00); RDW-CV 15.3 % (10.5-14.5); WBC 16.6 thou/uL (4.0-11.0)
[2020-09-21 22:25] LABS: ANION GAP < 0 mmol/L (7-16); BUN 23 mg/dL (7-18); CHLORIDE 95 mmol/L (98-107); CO2 44 mmol/L (21-32); CREATININE 0.7 mg/dL (0.6-1.3); GLUCOSE 158 mg/dL (70-99); MAGNESIUM 2.3 mg/dL (1.8-2.4); POTASSIUM 3.7 mmol/L (3.5-5.1); SODIUM 136 mmol/L (136-145)
[2020-09-21 22:29] LABS: PROTIME 10.2 Seconds (9.20-11.50)
[2020-09-22] VITALS (60 sets, daily range): BP systolic 107–186; BP diastolic 59–80
[2020-09-22 06:22] LABS: ABSOLUTE EOSINOPHILS 0.1 thou/uL (0.0-0.7); ABSOLUTE LYMPHOCYTES 1.2 thou/uL (0.8-5.3); ABSOLUTE MONOCYTES 0.9 thou/uL (0.0-1.2); ABSOLUTE NEUTROPHILS 16.8 thou/uL (1.6-8.1); EOSINOPHILS 0.7 %; HEMATOCRIT 37.2 % (42.0-52.0); HEMOGLOBIN 12.1 gm/dL (14.0-18.0); LYMPHOCYTES 6.5 %; MCH 28.5 pg (26.0-34.0); MCHC 32.5 g/dL (28.0-37.0); MCV 87.7 fL (80.0-100.0); MONOCYTES 4.5 %; MPV 7.7 fl. (7.2-11.1); NUCLEATED RBCS 0 /100WBC; PLATELET COUNT* 290 thou/uL (150-400); POLYS 88.3 %; RBC 4.25 mil/uL (4.50-6.00); RDW-CV 15.7 % (10.5-14.5)
[2020-09-22 06:42] LABS: ALBUMIN 2.5 g/dL (3.4-5.0); ALKALINE PHOSPHATASE 121 U/L (46-116); ANION GAP < 0 mmol/L (7-16); BUN 23 mg/dL (7-18); CALCIUM 8.3 mg/dL (8.5-10.1); CHLORIDE 93 mmol/L (98-107); CO2 40 mmol/L (21-32); CREATININE 0.6 mg/dL (0.6-1.3); GLUCOSE 107 mg/dL (70-99); MAGNESIUM 2.3 mg/dL (1.8-2.4); SGOT 107 U/L (15-37); SGPT 72 U/L (30-65); SODIUM 132 mmol/L (136-145); TOTAL BILIRUBIN 0.6 mg/dL (<0.1-1.0); TOTAL PROTEIN 6.9 g/dL (6.4-8.2)
[2020-09-22 07:01] LABS: PHOSPHORUS* 3.4 mg/dL (2.5-4.9)
[2020-09-22 07:35] LABS: PROTIME 10.5 Seconds (9.20-11.50)
[2020-09-22 07:36] LABS: APTT 32.6 Seconds (25.0-31.3)
--- NOTE | 2020-09-22 07:50 | NUR ---
ASSESSMENTS CAHRTED. PATIENT DROPPED O2 SATURATION TO LOW 80'S WITH NO RECOVERY. DR. HERNANDEZ PAGED AND ORDERS WERE OBTAINED. MEDICATION ADJUSTMENT AND ADMINISTRATION OF LEVOPHED FOR DROPPING BLOOD PRESSURE. PATIENT STABILIZED AROUND 2245. NO BM THIS SHIFT. PATIENT REMAINS PARALYZED. UPDATED WITH PATIENT STATUS.
[2020-09-22 11:14] LABS: BE 10.8 mmol/L (-2 to +3); pH 7.349 (7.340-7.450)
[2020-09-22 11:18] LABS: PCO2 73.5 mmHg (35.0-45.0); PO2 48.7 mmHg (75.0-100.0)
[2020-09-22 17:33] LABS: BE 10.3 mmol/L (-2 to +3); pH 7.354 (7.340-7.450)
[2020-09-22 17:36] LABS: PCO2 71.2 mmHg (35.0-45.0); PO2 47.6 mmHg (75.0-100.0)
[2020-09-22 17:58] LABS: CALCIUM 8.4 mg/dL (8.5-10.1); CREATININE 0.7 mg/dL (0.6-1.3); MAGNESIUM 2.3 mg/dL (1.8-2.4); POTASSIUM 4.3 mmol/L (3.5-5.1)
[2020-09-22 19:03] LABS: URINE BLOOD 3+ (Negative); URINE CLARITY CLOUDY; URINE COLOR YELLOW; URINE GLUCOSE-RANDOM NEGATIVE (Negative); URINE KETONES NEGATIVE (Negative); URINE LEUKOCYTES-REFLEX TRACE (Negative); URINE NITRITE-REFLEX NEGATIVE (Negative); URINE PROTEIN NEGATIVE (Negative); URINE UROBILINOGEN 0.2 E.U./dl (0.2-1.0)
[2020-09-22 19:05] LABS: ICTOTEST (BILI CONFIRMATORY) Negative (Negative); URINE BILIRUBIN 1+ (Negative)
[2020-09-22 19:20] LABS: SQUAMOUS 0-3 Few /LPF (0-3)
[2020-09-22 19:21] LABS: URINE RBC >20 Many /HPF (0-2); URINE WBC-REFLEX 6-15 Few /HPF (0-5)
[2020-09-22 19:22] LABS: CASTS None Seen /LPF (None Seen); CRYSTALS None Seen /LPF (None Seen); MUCUS 4-6 Moderate strn/LPF (None Seen); YEAST-REFLEX Present (None Seen)
--- NOTE | 2020-09-22 21:32 | NUR ---
HEPARIN GTT DC'D AT [address] HERNANDEZ R/T CONTINUOUS BLEEDING FROM MOUTH, BRIGHT RED URINE, AND BLACK NG OUTPUT WHICH CONTINUED FOR REMAINDER OF SHIFT. LASIX GTT DECREASED TO 5ML/HR THIS MORNING PER DR HERNANDEZ; LATER INCREASED BACK TO 10ML/HR PER DR HERNANDEZ. FREQUENT ORAL CARE REQUIRED R/T BLEEDING. O2 SAT REMAINED 78-81% FOR MAJORITY OF SHIFT, DR HERNANDEZ AWARE. DR HERNANDEZ NOTIFIED OF CRITICAL LABS THOROUGHOUT THE DAY. MICROTURNS ONLY Q2 HR DUE TO DRAMATIC IMPACT OF FULL TURNS ON BP, HR, AND O2 SAT. PROVIDED THOROUGH EDUCATION OF PTS CONDITION AND POSSIBLE OUTCOMES, MAINTAINS DESIRE TO KEEP PT FULL CODE AFTER SPEAKING WITH DR CHANDRA. TF NOT RESUMED DUE TO BLACK NG OUTPUT.
[2020-09-23] VITALS (22 sets, daily range): BP systolic 96–145; BP diastolic 58–75
[2020-09-23 06:07] LABS: INR 0.9; PROTIME 10.1 Seconds (9.20-11.50)
[2020-09-23 06:15] LABS: ALBUMIN 2.2 g/dL (3.4-5.0); APTT 21.9 Seconds (25.0-31.3); CALCIUM 8.5 mg/dL (8.5-10.1); CREATININE 0.6 mg/dL (0.6-1.3); MAGNESIUM 2.3 mg/dL (1.8-2.4); POTASSIUM 3.5 mmol/L (3.5-5.1); TOTAL BILIRUBIN 0.6 mg/dL (<0.1-1.0); TOTAL PROTEIN 6.8 g/dL (6.4-8.2)
[2020-09-23 06:17] LABS: ABSOLUTE LYMPHOCYTES 0.6 thou/uL (0.8-5.3); ABSOLUTE MONOCYTES 0.4 thou/uL (0.0-1.2); ABSOLUTE NEUTROPHILS 15.9 thou/uL (1.6-8.1); HEMATOCRIT 36.6 % (42.0-52.0); HEMOGLOBIN 11.8 gm/dL (14.0-18.0); LYMPHOCYTES 3.4 %; MCH 28.3 pg (26.0-34.0); MCHC 32.3 g/dL (28.0-37.0); MCV 87.5 fL (80.0-100.0); MONOCYTES 2.2 %; MPV 8.6 fl. (7.2-11.1); NUCLEATED RBCS 0 /100WBC; PLATELET COUNT* 269 thou/uL (150-400); POLYS 94.4 %; RBC 4.18 mil/uL (4.50-6.00); RDW-CV 15.4 % (10.5-14.5); WBC 16.8 thou/uL (4.0-11.0)
--- NOTE | 2020-09-23 07:35 | NUR ---
0735 VFIB IN 180S ON MONITOR. NO PULSE. CPR INTIATED. 1 ROUND OF EPI GIVEN. PT CONVERTED TO RAPID AFIB WITH PULSE. SEE CODE BLUE SHEET. DR CHANDRA SPOKE TO
[2020-09-23 08:01] LABS: BE 12.3 mmol/L (-2 to +3); pH 7.343 (7.340-7.450)
[2020-09-23 08:02] LABS: PCO2 77.9 mmHg (35.0-45.0); PO2 32.6 mmHg (75.0-100.0)
--- NOTE | 2020-09-23 08:15 | NUR ---
JOSE AT BS. GIVEN PPE-GOWN,GLOVES AND N95. DISCUSSED WITH PT STATUS WAS PREVIOUSLY DISCUSSED BY DR CHANDRA. STATES SHE DOES NOT WANT PT TO SUFFER AND WOULD LIKE PT TO BE DNR. DISCUSSED POSSIBILITY OF EXTUBATION AND COMFORT CARE. STATES SHE IS NOT READY TO MAKE COMFORT CARE DECISION YET BUT DOES NOT RESUSCITATION. DR CHANDRA NOTIFIED. DNR ORDERED
--- NOTE | 2020-09-23 08:16 | NUR ---
ASSESSMENTS CHARTED. PATIENT REMAINS UNSTABLE ON THE VENT, O2 SATURATIONS STAYING IN THE MID 80'S. UNABLE TO TOLERATE TURNING TO SIDES. BEN LOPEZ CALLED AT SHIFT CHANGE, PATIENT WENT TO [facility] FROM [place]. SEE CODE RECORD FOR DETAILS. PATIENT RESUSCITATED. CALLED BY DR. CHANDRA WITH UPDATE ON BEN LOPEZ.
--- NOTE | 2020-09-23 10:05 | NUR ---
[address] CHANDRA AT BS. AT BS. PT AT 1008
--- NOTE | 2020-09-23 12:58 | NUR ---
RECEIVED CALL FROM PT'S JOSE. SHE STATES SHE HAS CALLED [employer] AND WANTS STAFF TO CONTACT THEM
== END 2020-09-23 10:08 | DRG 870 ==
LOC: M.ERS 19:24 → M.TBA-ER 21:16 → M.ORTHSURG 21:16 → M.ICU 09-05 12:02 → M.ORTHSURG 09-05 12:02 → M.ICU 09-10 09:06
PROVIDERS: Emergency Medicine; Internal Medicine; Internal Medicine Critical Care Medicine; Pediatrics; ADMIT Internal Medicine; ATTEND Internal Medicine
PROC: 5A09357 Assistance with Respiratory Ventilation, Less than 24 Consecutive Hours, Continuous Positive Airway Pressure (ICD-10-PCS; principal; 2020-09-05)
PROC: XW13325 Transfusion of Convalescent Plasma (Nonautologous) into Peripheral Vein, Percutaneous Approach, New Technology Group 5 (ICD-10-PCS; principal; 2020-09-05)
PROC: XW033E5 Introduction of Remdesivir Anti-infective into Peripheral Vein, Percutaneous Approach, New Technology Group 5 (ICD-10-PCS; 2020-09-06)
PROC: 5A09357 Assistance with Respiratory Ventilation, Less than 24 Consecutive Hours, Continuous Positive Airway Pressure (ICD-10-PCS; 2020-09-06)
PROC: 5A0935A Assistance with Respiratory Ventilation, Less than 24 Consecutive Hours, High Flow/Velocity Cannula (ICD-10-PCS; 2020-09-07)
PROC: 5A09357 Assistance with Respiratory Ventilation, Less than 24 Consecutive Hours, Continuous Positive Airway Pressure (ICD-10-PCS; 2020-09-08)
PROC: 5A0935A Assistance with Respiratory Ventilation, Less than 24 Consecutive Hours, High Flow/Velocity Cannula (ICD-10-PCS; 2020-09-08)
PROC: 5A09357 Assistance with Respiratory Ventilation, Less than 24 Consecutive Hours, Continuous Positive Airway Pressure (ICD-10-PCS; 2020-09-09)
PROC: 0BH17EZ Insertion of Endotracheal Airway into Trachea, Via Natural or Artificial Opening (ICD-10-PCS; 2020-09-10)
PROC: 4A133J1 Monitoring of Arterial Pulse, Peripheral, Percutaneous Approach (ICD-10-PCS; 2020-09-10)
PROC: 5A1955Z Respiratory Ventilation, Greater than 96 Consecutive Hours (ICD-10-PCS; 2020-09-10)
PROC: 4A133B1 Monitoring of Arterial Pressure, Peripheral, Percutaneous Approach (ICD-10-PCS; 2020-09-10)
PROC: 5A0935A Assistance with Respiratory Ventilation, Less than 24 Consecutive Hours, High Flow/Velocity Cannula (ICD-10-PCS; 2020-09-10)
PROC: 02HV33Z Insertion of Infusion Device into Superior Vena Cava, Percutaneous Approach (ICD-10-PCS; 2020-09-10)
PROC: 03HY32Z Insertion of Monitoring Device into Upper Artery, Percutaneous Approach (ICD-10-PCS; 2020-09-10)
PROC: B548ZZA Ultrasonography of Superior Vena Cava, Guidance (ICD-10-PCS; 2020-09-10)
DX: A41.89 Other specified sepsis (principal); U07.1 COVID-19; J12.89 Other viral pneumonia; J80 Acute respiratory distress syndrome; Z68.41 Body mass index [BMI] 40.0-44.9, adult; I31.3 Pericardial effusion (noninflammatory); E87.3 Alkalosis; G47.33 Obstructive sleep apnea (adult) (pediatric); E66.01 Morbid (severe) obesity due to excess calories; I48.91 Unspecified atrial fibrillation; Z79.899 Other long term (current) drug therapy; Z87.891 Personal history of nicotine dependence; Z88.0 Allergy status to penicillin; Z88.5 Allergy status to narcotic agent; Z86.718 Personal history of other venous thrombosis and embolism; Z86.711 Personal history of pulmonary embolism